=== PATIENT | male | born 1985 | race Caucasian/White ===

== ENCOUNTER 2020-12-22 13:49 | Inpatient (IN) | payer OTHER ==
[2020-12-22] VITALS (12 sets, daily range): BP systolic 119–132; BP diastolic 59–82
[~2020-12-22] VITALS: Ht 175.3 cm; Wt 68.5 kg
--- NOTE | 2020-12-22 16:09 | REP ---
INDICATION: metastatic testicular CA. COMPARISON: The prior study dated 08/16/2011 could not be found in the imaging archive for reasons unknown to this examiner. The transcribed report of that study describes numerous bilateral lung nodules. No adenopathy was identified. TECHNIQUE: Chest CT without IV contrast. FINDINGS: No lung nodules are identified today. There are no infiltrates or pleural effusions. There are a few subpleural bulla in the left paramediastinal area. There is no mediastinal lymph node enlargement. There is no axillary lymphadenopathy. In the absence of IV contrast the study is insensitive for hilar lymph node enlargement. The unenhanced thoracic aorta is unremarkable. Cardiac size is normal. There is no pericardial effusion. IMPRESSION: There are no lung nodules. There is no adenopathy. There are no infiltrates or pleural effusions. There are no lytic, blastic or destructive skeletal changes. Essentially negative CT study of the chest. <Electronically signed by Estevan Thomas > 12/22/20 [id number]
--- NOTE | 2020-12-22 16:19 | REP ---
INDICATION: metastatic testicular CA. COMPARISON: No images are available in the computer archive for the prior study dated 08/16/2011, for reasons unknown to this examiner. TECHNIQUE: Abdomen/pelvis CT without IV or bowel contrast. FINDINGS: The unenhanced hepatic parenchyma is homogeneous. The gallbladder, unenhanced pancreas and unenhanced spleen are normal size and otherwise unremarkable. The adrenals are unremarkable. On the prior study a large right renal/retroperitoneal mass is described. On the study today the right kidney is markedly atrophic measuring 4.2 cm craniocaudad by 4.6 cm transversely by 1.7 cm AP. There are few small dystrophic calcifications within this right renal remanent. The left kidney is unremarkable. The abdominal aorta is unremarkable. There is no periaortic/retroperitoneal adenopathy or mass. The bowel and mesentery are unremarkable. Pelvis: There is no pelvic adenopathy or ascites. The bladder is incompletely distended but otherwise unremarkable. The prostate is normal size. Seminal vesicles are unremarkable. The appendix is unremarkable. The pelvic bowel loops are unremarkable. There are no lytic, blastic or destructive skeletal changes. IMPRESSION: The previously described large right renal/retroperitoneal mass is no longer present. There is no retroperitoneal or mesenteric adenopathy. The right kidney is markedly atrophic. The left kidney is unremarkable. Otherwise, essentially negative abdomen/pelvis CT. <Electronically signed by Estevan Thomas > 12/22/20 [id number]
[2020-12-22 16:38] LABS: RSV AMPLIFICATION NEGATIVE (NEGATIVE)
[2020-12-22] MEDS ORDERED: ACETAMINOPHEN TAB 650MG DOSE (2X325MG) PO PRN (17:15)
[2020-12-22] MEDS ORDERED: NS 1,000 ML IV SCH (17:15)
[2020-12-22] MEDS: SUCRALFATE 1 GM TAB PO SCH ×2 (18:00→23:21)
--- NOTE | 2020-12-22 18:02 | HPEPDOC ---
General Date of Admission 12/22/20 Date of Service: Dec 22, 2020 Chief Complaint The patient is a 35-year-old male admitted with a reason for visit of Gen Med Complaint. Source: Patient Exam Limitations: No limitations Severity: Moderate History of Present Illness Patient is 35 years old male with past medical history of right testicular carcinoma presented to the hospital with generalized weakness. Patient stated that for past one week he has been having increased shortness of breath on exertion and generalized weakness. Also she stated that for past few months has been having intermittent diarrhea with red blood in his stool at least 3 times in the week for past 6 months. He states that he has been having intermittent nausea and vomiting. He thought that it might be frequent food poisoning. He denied any fever, dysuria or chills. Of note patient has history of metastatic right testicular carcinoma, diagnosed in 2010, he had 2 cycles of chemotherapy, after that he developed remission. He stopped following oncologist in 2014. Patient does not have primary care and didn't see primary care physician for years. In ER patient was found to have Hb 3.7, no leukocytosis, BUN 23, creatinine 2.7, iron 12, total iron binding capacity 473. CT chest There are no lung nodules. There is no adenopathy. There are no infiltrates or pleural effusions. There are no lytic, blastic or destructive skeletal changes. CT abdomen and pelvis showed The previously described large right renal/retroperi toneal mass is no longer present. There is no retroperitoneal or mesenteric adenopathy. The right kidney is markedly atrophic. The left kidney is unremarkable Home Medications No Active Prescriptions or Reported Meds Allergies Coded Allergies: No Known Allergies (Unverified , 12/22/20) Past Medical History Medical History Right testicular carcinoma Surgical History Bone stem transplant Family History Mother - breast cancer, father diabetes Social History * Smoker: current smoker Alcohol: heavy Drugs: marijuana A-FIB/CHADSVASC A-FIB History Current/History of A-Fib/PAF?: No Current PO Anticoag Therapy: No Review of Systems Constitutional: Reports: Weakness, Fatigue; Denies: Chills, Fever Eyes: Denies: Pain ENT: Denies: Head Aches Skin: Denies: Rash, Lesions Pulmonary: Reports: Dyspnea Cardiovascular: Denies: Chest Pain Gastrointestinal: Reports: Nausea, Vomiting Genitourinary: Denies: Dysuria, Frequency Hematologic: Denies: Bruising Endocrine: Denies: Polydipsia Musculoskeletal: Denies: Neck Pain Neurological: Denies: Weakness Psych: Reports: Mood Normal Physical Examination General Exam: Positive: Alert, Cooperative Eye Exam: Positive: PERRLA ENT Exam: Positive: Atraumatic Neck Exam: Positive: Supple; Negative: JVD Chest Exam: Positive: Clear to auscultation Heart Exam: Positive: Rate Normal Telemetry: Positive: No significant arrhythmia Abdomen Exam: Positive: Normal bowel sounds Extremity Exam: Negative: Clubbing Skin Exam: Positive: Other skin issue (pale) Neuro Exam: Positive: Normal Gait, Strength at 5/5 X4 ext Psych Exam: Positive: Mental status NL Vital Signs Vital Signs Date Time Temp Pulse Resp B/P (MAP) Pulse Ox O2 Delivery O2 Flow Rate FiO2 12/22/20 17:18 98.9 81 18 119/59 100 Room Air Laboratory Data Labs 24H Laboratory Tests 2 12/22/20 15:41: Coronavirus (COVID-19)(PCR) NEGATIVE, Influenza Type A (RT-PCR) NEGATIVE, Influenza Type B (RT-PCR) NEGATIVE, Respiratory Syncytial Virus (PCR) NEGATIVE Assessment/Plan Patient is 35 years old male with past medical history of right testicular carcinoma presented to the hospital with generalized weakness. Patient stated that for past one week he has been having increased shortness of breath on exertion and generalized weakness. Also she stated that for past few months has been having intermittent diarrhea with red blood in his stool. He states that he has been having intermittent nausea and vomiting. He thought that it might be frequent food poisoning. He denied any fever, dysuria or chills. Of note patient has history of metastatic right testicular carcinoma, diagnosed in 2010, he had 2 cycles of chemotherapy, after that he developed remission. He stopped following oncologist in 2014. Patient does not have primary care and didn't see primary care physician for years. In ER patient was found to have Hb 3.7, no leukocytosis, BUN 23, creatinine 2.7, iron 12, total iron binding capacity 473. CT chest There are no lung nodules. There is no adenopathy. There are no infil trates or pleural effusions. There are no lytic, blastic or destructive skeletal changes. CT abdomen and pelvis showed The previously described large right renal/retroperitoneal mass is no longer present. There is no retroperitoneal or mesenteric adenopathy. The right kidney is markedly atrophic. The left kidney is unremarkable Problems (1) Symptomatic anemia Status: Acute Problem Text: Most likely secondary to acute GI bleed Patient reported red blood blood in the stool for past 6 months. Also patient has significant alcohol abuse history Stool for occult blood Clear liquid diet for now Appreciate/agree with gastric GI consult (2) Hx of testicular malignancy Status: Acute Problem Text: Follow-up with oncologist in the outpatient settings (3) Acute renal failure Status: Acute Problem Text: Multifactorial. Patient has an atrophic right kidney, severe anemia and dehydration IV fluid, blood transfusion Appreciate/agree with nephrology consult (4) Iron deficiency Status: Acute Problem Text: Blood transfusion for now. 3 units of blood was ordered by ER Iron supplementation Plan / VTE VTE Prophylaxis Ordered?: No VTE Exclusion Pharmacological: Bleeding Risk JUVENTINO MALDONADO DO Dec 22, 2020 18:02
[2020-12-22] MEDS: PANTOPRAZOLE 40MG VIAL (C9113 PER 1) IV SCH (22:39)
[2020-12-22 23:14] LABS: HEMATOCRIT 20.1 % (42.0-52.0); HEMOGLOBIN 5.8 g/dl (13.5-17.5)
[2020-12-22] MEDS: IRON POLYSAC (NIFEREX) 150 MG CAP PO SCH (23:21)
[2020-12-23] VITALS (15 sets, daily range): BP systolic 120–132; BP diastolic 63–94
[2020-12-23 03:16] LABS: MEAN CORPUSCULAR HEMOGLOBIN 25.1 pg (27.0-33.0); MEAN CORPUSCULAR VOLUME 83.7 fl (80.0-96.0); PLATELET COUNT, AUTOMATED 205 10^3/uL (150-450); RED BLOOD COUNT 2.51 10^6/uL (4.30-6.10); WHITE BLOOD COUNT 8.3 10^3/uL (4.0-10.0)
[2020-12-23 03:26] LABS: INR 1.14; PROTHROMBIN TIME 14.9 SECONDS (12.5-14.3)
[2020-12-23 03:28] LABS: HEMOGLOBIN 6.3 g/dl (13.5-17.5)
[2020-12-23 03:51] LABS: ALBUMIN 3.1 GM/DL (3.2-5.2); BILIRUBIN,TOTAL 0.8 MG/DL (0.2-1.0); CALCIUM LEVEL 7.8 MG/DL (8.5-10.1); CREATININE FOR GFR 2.34 MG/DL (0.70-1.30); GLOMERULAR FILTRATION RATE 33.7 (>60); TOTAL PROTEIN 5.7 GM/DL (6.4-8.2)
[2020-12-23] MEDS: SUCRALFATE 1 GM TAB PO SCH ×3 (06:11→17:15)
[2020-12-23] MEDS ORDERED: SODIUM BICARBONATE 75 MEQ in NS 0.45% 1,000 ML IV SCH (09:00)
[2020-12-23] MEDS: PANTOPRAZOLE 40MG VIAL (C9113 PER 1) IV SCH ×2 (09:23→21:25)
[2020-12-23] MEDS: IRON POLYSAC (NIFEREX) 150 MG CAP PO SCH ×2 (09:23→21:25)
[2020-12-23 09:29] LABS: PERCENT SATURATION 93.6 % (19.7-50.0)
[2020-12-23 09:56] LABS: HEMOGLOBIN 7.6 g/dl (13.5-17.5)
[2020-12-23] MEDS ORDERED: NULYTELY SOLN 4000ML BTL PO ONE (13:00)
[2020-12-23 13:42] LABS: HEMOGLOBIN 8.6 g/dl (13.5-17.5)
--- NOTE | 2020-12-23 14:12 | IPNPDOC ---
Text Note Date of Service The patient was seen on 12/23/20. NOTE Subjective: Patient states that he feels better today. Denies fever, chills. He denied any abdominal pain, nausea or vomiting Objective: GENERAL APPEARANCE: Pale male HEENT: no scleral icterus, no JVD, EOMI CARDIOVASCULAR: S1S2 LUNGS: CTA ABDOMEN: soft & not tender w palpitation MUSCULOSKELETAL: no cyanosis, no swelling INTEGUMENT: no generalized pallor NEUROLOGICAL: cranial nerve function from 2-12 intact intact, follows commands, speech not dysarthric Assessment/Plan Patient is 35 years old male with past medical history of right testicular carcinoma presented to the hospital with generalized weakness. Patient stated that for past one week he has been having increased shortness of breath on exertion and generalized weakness. Also she stated that for past few months has been having intermittent diarrhea with red blood in his stool. He states that he has been having intermittent nausea and vomiting. He thought that it might be frequent food poisoning. He denied any fever, dysuria or chills. Of note patient has history of metastatic right testicular carcinoma, diagnosed in 2010, he had 2 cycles of chemotherapy, after that he developed remission. He stopped following oncologist in 2014. Patient does not have primary care and didn't see primary care physician for years. In ER patient was found to have Hb 3.7, no leukocytosis, BUN 23, creatinine 2.7, iron 12, total iron binding capacity 473. CT chest There are no lung nodules. There is no adenopathy. There are no infiltrates or pleural effusions. There are no lytic, blastic or destructive sk eletal changes. CT abdomen and pelvis showed The previously described large right renal/retroperitoneal mass is no longer present. There is no retroperitoneal or mesenteric adenopathy. The right kidney is markedly atrophic. The left kidney is unremarkable Problems (1) Symptomatic anemia Most likely secondary to acute GI bleed Patient reported red blood blood in the stool for past 6 months. Also patient has significant alcohol abuse history. Patient received 3 units of blood since yesterday. Hemoglobin 8.6 Await Stool for occult blood Clear liquid diet for now GI team revealed proceed with colonoscopy and EGD tomorrow (2) Hx of testicular malignancy Follow-up with oncologist in the outpatient settings (3) Acute renal failure Multifactorial. Patient has an atrophic right kidney, severe anemia and dehydration IV fluid, blood transfusion Appreciate/agree with nephrology consult (4) Iron deficiency Blood transfusion for now. 3 units of blood was ordered by ER Iron supplementation VS,Americo, I+O VS, Americo, I+O Laboratory Tests 12/22/20 23:00 12/23/20 03:01 12/23/20 09:24 12/23/20 13:31 Vital Signs Date Time Temp Pulse Resp B/P (MAP) Pulse Ox O2 Delivery O2 Flow Rate FiO2 12/23/20 13:15 98.6 54 18 126/80 100 Room Air l I&O- Last 24 Hours up to 6 AM 12/23/20 05:59 Intake Total 1148 ml Output Total 150 ml Balance 998 ml JUVENTINO MALDONADO DO Dec 23, 2020 14:11
[2020-12-23 18:25] LABS: HEMATOCRIT 29.5 % (42.0-52.0)
--- NOTE | 2020-12-23 19:31 | CR.PDOC ---
General Date of Consultation: Dec 23, 2020 Referring Provider: JUVENTINO MALDONADO DO Attending Physician: LUIS CHILDRESS MD Consultation REASON FOR CONSULTATION/CHIEF COMPLAINT: Acute renal failure CHIEF COMPLAINT: fatigue HISTORY OF PRESENT ILLNESS: Roman Stoddard is a 35 YO M with history of testicular cancer in 2010 s/p chemotherapy and bone marrow transplant who presents with several days weakness and fatigue. He states that he received his first dose of the COVID19 vaccination around 6 days ago and since that time has felt more tired, fatigued, and short of breath. He went to [facility] and underwent labs where he was found to have a hgb 3.6 and sent immediately to the ER. He states he has had black stools off and on for about 6 months and abdominal pain, nausea and o ccasional non-bloody vomiting during that time. He has not seen any medical professional since 2014 when he completed his cancer treatment at [facility]. He reports that he drinks 3-4 beers a night and smokes both cigarettes and marijuana very heavily. He denies any recent fevers, chills, rigors but does report a 10lb weight loss in the past year. PAST MEDICAL HISTORY: 1. History of testicular carcinoma diagnosed in 2010, s/p 2 cycles chemotherapy 2. Atrophic R kidney, 2/2 to metastasis of testicular cancer PAST SURGICAL HISTORY: 1. Bone marrow transplant SOCIAL HISTORY: Current daily smoker, Reports heavy EtOH use, smokes marijuana FAMILY HISTORY: Reviewed and noncontributory ALLERGIES: Please see below. REVIEW OF SYSTEMS: 10 point ROS negative other than stated in HPI HOME MEDICATIONS: Please see below. PHYSICAL EXAMINATION: VITAL SIGNS: see below GENERAL: alert and oriented, in no apparent distress, pleasant and conversant in full sentences, pale appearing HEENT: PERRL, EOMI, Oral mucous membranes are moist without lesions. NECK: JVD is elevated. No adenopathy is appreciated. No thyromegaly CHEST/LUNGS: Lungs are clear bilaterally without rhonchi, rales, or wheezes. There is no subcutaneous air appreciated. There is no tenderness to the chest wall. HEART: Regular rate and rhythm. No murmurs, rubs, or gallops are appreciated. Distal pulses are 2+. No carotid bruits appreciated. ABDOMEN: Soft, nondistended. Tender to deep palpation in all four quadrants. Bowel sounds are positive. No organomegaly is appreciated. No masses are appreciated. There are no peritoneal signs. There is no Kingman sign. EXTREMITIES: No peripheral edema. There is no focal long bone tenderness or deformity. SKIN: The patients skin is warm and dry, without rashes or lesions. PSYCHIATRIC: AAO x 3, normal mood/affect NEUROLOGIC: The patient has 5/5 strength to the upper and lower extremities bilaterally. Sensation is intact throughout. Deep tendon reflexes are 2+ in all four extremities. There are no deficits to the cranial nerves. LABORATORY DATA: See below. IMAGING: CT CHEST: IMPRESSION: There are no lung nodules. There is no adenopathy. There are no infiltrates or pleural effusions. There are no lytic, blastic or destructive skeletal changes. Essentially negative CT study of the chest. CT ABD/PEL: IMPRESSION: The previously described large right renal/retroperitoneal mass is no longer present. There is no retroperitoneal or mesenteric adenopathy. The right kidney is markedly atrophic. The left kidney is unremarkable. Otherwise, essentially negative abdomen/pelvis CT. MICROBIOLOGY: Please see below. ASSESSMENT: This is a 35 YO M with history of testicular cancer who has not seen a health professional since 2014 who presented to the ED with fatigue, SOB, black stools and weight loss found to have anemia with hgb 5.8 and acute renal failure. PLAN: 1. Acute renal failure: Cr found to be 2.34, unknown baseline -The patient has atrophic R kidney reportedly from metastasis of testicular cancer. He is not aware of any history of kidney dysfunction or disease -Likely prerenal. Pending Urine studies -Hold further fluid resuscitation for now given the amount of blood received and clinically the patient is somewhat fluid overloaded -Renal function likely to improve with pRBCs and fluid 2. Anemia, likely 2/2 GI bleed: fecal occult positive -Recommend protonix at this time -Hgb seems to have improved after 5U pRBCs, now up to 9.0 -Recommend re-check iron studies after transfusions completed 3. History of testicular cancer, now atrophic R kidney -Patient will likely need follow up with heme/onc DISPO:Pending improvement of renal function Vital Signs/I&O Vital Signs Date Time Temp Pulse Resp B/P (MAP) Pulse Ox O2 Delivery O2 Flow Rate FiO2 12/23/20 07:44 98.0 62 18 124/64 (84) 100 Room Air I&O- Last 24 Hours up to 6 AM 12/23/20 06:00 Intake Total 1148 ml Output Total 150 ml Balance 998 ml Laboratory Data Labs 24H Laboratory Tests 2 12/22/20 15:41: Coronavirus (COVID-19)(PCR) NEGATIVE, Influenza Type A (RT-PCR) NEGATIVE, Influenza Type B (RT-PCR) NEGATIVE, Respiratory Syncytial Virus (PCR) NEGATIVE 12/22/20 23:00: Reticulocyte # (auto) 21.9, Percent Reticulocyte Count 0.9, Reticulocyte Hemoglobin Equivalent 18.1L 12/23/20 03:01: Nucleated Red Blood Cells % (auto) 0.8H, Prothrombin Time 14.9H, Prothromb Time International Ratio 1.14, Anion Gap 7L, Glomerular Filtration Rate 33.7L, Calcium Level 7.8L, Magnesium Level 2.0, Total Bilirubin 0.8#, Aspartate Amino Transf (AST/SGOT) 14, Alanine Aminotransferase (ALT/SGPT) 17, Alkaline Phosphatase 99, Total Protein 5.7L, Albumin 3.1L, Albumin/Globulin Ratio 1.2 CBC/BMP Laboratory Tests 12/22/20 23:00 12/23/20 03:01 Allergies Coded Allergies: No Known Allergies (Unverified , 12/22/20) Home Medications No Active Prescriptions or Reported Meds GME ATTESTATION GME ATTESTATION My faculty preceptor for this patient encounter was physically present during the encounter and was fully available. All aspects of the patient interview, examination, medical decision making process, and medical care plan development were reviewed and approved by the faculty preceptor. The faculty preceptor is aware and concurs with the plan as stated in the body of this note and will attest to such by his/her cosignature. Attending Note Attending Note h/o testicular Ca s/p chemo and bone marrow transplant. Rt renal atrophy. No known baseline renal function. No physician visit last 6 yr. Admitted with Renal failure and severe symptomatic anemia RUTH on possible CKD Rt renal atrophy. Severe Anemia and possible GI bleed. Metabolic acidosis PRBC transfusion. Bicarb fluid given but signs of fluid overload. Hold IV fluid for now. Monitor renal function. No urgent need of HD. OMEGA FAITH MD Dec 23, 2020 08:41 LUIS CHILDRESS MD Dec 23, 2020 23:07
[2020-12-23 21:14] LABS: APPEARANCE, URINE CLEAR (CLEAR); BACTERIA, URINE AUTO NEGATIVE (NEGATIVE); BILIRUBIN, URINE AUTO NEGATIVE (NEGATIVE); BLOOD, URINE BLOOD 1+ (NEGATIVE); COLOR, URINE STRAW (YELLOW); GLUCOSE, URINE (UA) AUTO 2+ mg/dL (NEGATIVE); KETONE, URINE AUTO NEGATIVE (NEGATIVE); LEUKOCYTE ESTERASE, URINE AUTO NEGATIVE (NEGATIVE); NITRITE, URINE AUTO NEGATIVE (NEGATIVE); PROTEIN, URINE AUTO 1+ mg/dL (NEGATIVE); RBC, URINE AUTO 0 /HPF (0-3); SPECIFIC GRAVITY URINE AUTO 1.008 (1.002-1.035); SQUAMOUS EPITHELIAL CELL UR AU 0 /HPF (0-6); UROBILINOGEN, URINE AUTO 0.2 mg/dL (0.0-2.0); WBC, URINE AUTO 0 /HPF (0-3)
[2020-12-23 21:35] LABS: CREATININE,RANDOM URINE 48.2 MG/DL; SODIUM,RANDOM URINE 60 MEQ/L
[2020-12-24] VITALS (7 sets, daily range): BP systolic 118–132; BP diastolic 71–78
[2020-12-24] MEDS: SUCRALFATE 1 GM TAB PO SCH ×4 (00:05→17:42)
[2020-12-24 00:48] LABS: HEMATOCRIT 29.9 % (42.0-52.0); HEMOGLOBIN 9.3 g/dl (13.5-17.5)
[2020-12-24 06:34] LABS: BASO # 0.1 10^3/uL (0.0-0.2); BASO % 0.6 % (0.0-1.0); EOS # 0.1 10^3/uL (0.0-0.5); EOS % 1.7 % (0.0-3.0); HEMATOCRIT 26.2 % (42.0-52.0); HEMOGLOBIN 8.1 g/dl (13.5-17.5); LYMPH # 1.6 10^3/uL (1.5-5.0); LYMPH % 18.8 % (24.0-44.0); MEAN CORPUSCULAR HEMOGLOBIN 25.6 pg (27.0-33.0); MEAN CORPUSCULAR HGB CONC 30.9 g/dl (32.0-36.5); MEAN CORPUSCULAR VOLUME 82.9 fl (80.0-96.0); MONO # 0.5 10^3/uL (0.0-0.8); MONO % 6.3 % (2.0-8.0); NEUTROPHILS # 6.1 10^3/uL (1.5-8.5); PLATELET COUNT, AUTOMATED 196 10^3/uL (150-450); RED BLOOD COUNT 3.16 10^6/uL (4.30-6.10); WHITE BLOOD COUNT 8.5 10^3/uL (4.0-10.0)
[2020-12-24 06:46] LABS: INR 1.13; PROTHROMBIN TIME 14.8 SECONDS (12.5-14.3)
[2020-12-24 06:56] LABS: ALBUMIN 2.9 GM/DL (3.2-5.2); BILIRUBIN,TOTAL 0.7 MG/DL (0.2-1.0); CALCIUM LEVEL 7.8 MG/DL (8.5-10.1); CREATININE FOR GFR 2.28 MG/DL (0.70-1.30); GLOMERULAR FILTRATION RATE 34.8 (>60); TOTAL PROTEIN 5.6 GM/DL (6.4-8.2)
[2020-12-24] MEDS: IRON POLYSAC (NIFEREX) 150 MG CAP PO SCH ×2 (11:57→20:09)
[2020-12-24] MEDS: PANTOPRAZOLE 40MG VIAL (C9113 PER 1) IV SCH ×2 (11:57→20:09)
--- NOTE | 2020-12-24 11:57 | IPNPDOC ---
Subjective General Date/Time Seen The patient was seen on 12/24/20 at 11:47. Subject Chief Complaint/History The patient is a 35-year-old male admitted with a reason for visit of Acute Renal Failure/Hx Of Testicular Malignancy/Sy. PRATIK Owens was seen and examined at the bedside this morning. He has just completed his Golytely as there is plan for EGD/colonscopy today. He has no complaints today. His renal function is about the same today, and this was explained to him. All questions were answered. Otherwise, he denies any nausea/vomiting or abdominal pain at this time. OBJECTIVE PHYSICAL EXAMINATION: VITAL SIGNS: see below GENERAL: alert and oriented, in no apparent distress, pleasant and conversant in full sentences, pale appearing/thin HEENT: PERRL, EOMI, Oral mucous membranes are moist without lesions. NECK: JVD is only mildly elevated, improved from yesterday. No adenopathy is appreciated. No thyromegaly CHEST/LUNGS: Lungs are clear bilaterally without rhonchi, rales, or wheezes. There is no subcutaneous air appreciated. There is no tenderness to the chest wall. HEART: Regular rate and rhythm. No murmurs, rubs, or gallops are appreciated. Distal pulses are 2+. No carotid bruits appreciated. ABDOMEN: Soft, nondistended. Tender to deep palpation in all four quadrants. Bowel sounds are positive. No organomegaly is appreciated. No masses are appreciated. There are no peritoneal signs. There is no [place] Sp[place] sign. EXTREMITIES: No peripheral edema. There is no focal long bone tenderness or deformity. SKIN: The patients skin is warm and dry, without rashes or lesions. PSYCHIATRIC: AAO x 3, normal mood/affect NEUROLOGIC: There are no obvious focal deficits LABORATORY DATA: See below. IMAGING: CT CHEST: IMPRESSION: There are no lung nodules. There is no adenopathy. There are no infiltrates or pleural effusions. There are no lytic, blastic or destructive skeletal changes. Essentially negative CT study of the chest. CT ABD/PEL: IMPRESSION: The previously described large right renal/retroperitoneal mass is no longer present. There is no retroperitoneal or mesenteric adenopathy. The right kidney is markedly atrophic. The left kidney is unremarkable. Otherwise, essentially negative abdomen/pelvis CT. MICROBIOLOGY: Please see below. ASSESSMENT: This is a 35 YO M with history of testicular cancer who has not seen a health professional since 2014 who presented to the ED with fatigue, SOB, black stools and weight loss found to have anemia with hgb 5.8 and acute renal failure. PLAN: 1. Acute renal failure: Cr slightly improved to 2.28 today -The patient has atrophic R kidney reportedly from metastasis of testicular cancer. He is not aware of any history of kidney dysfunction or disease -Urine studies indicate FeNA of 2%, or intrinsic etiology -Will start patient on oral bicarbonate tomorrow as he is NPO for his procedure today 2. Anemia, likely 2/2 GI bleed: fecal occult positive -Continue Protonix -Hgb seems to have improved after 5U pRBCs, now around 8.1 -Recommend re-check iron studies after transfusions completed 3. History of testicular cancer, now atrophic R kidney -Patient will likely need follow up with heme/onc DISPO:Pending improvement of renal function, needs to follow up with Nephrology in outpatient setting after discharge Current Medications Current Medications Current Medications Medications (Trade) Dose Ordered Sig/Miko Route PRN Reason Start Time Stop Time Status Last Admin Dose Admin Acetaminophen (Tylenol Tab) 650 mg Q4H PRN PO PAIN OR FEVER 12/22/20 17:15 Home Med (Med Rec Complete!) ASDIRECTED XX 12/22/20 15:15 12/22/20 15:17 DC Iron (Niferex) 150 mg BID PO 12/22/20 21:00 12/23/20 21:25 Pantoprazole Sodium (Protonix) 40 mg BID IV 12/22/20 21:00 12/23/20 21:25 Sodium Bicarbonate 75 meq/Sodium Chloride 1,075 ml @ 100 mls/hr [id number] IV 12/23/20 09:00 12/23/20 12:29 DC 12/23/20 09:23 Sodium Chloride 1,000 ml @ 75 mls/hr [id number] IV 12/22/20 17:15 12/23/20 07:11 DC Sucralfate (Carafate) 1 gm Q6H PO 12/22/20 18:00 12/24/20 06:17 Allergies Coded Allergies: No Known Allergies (Unverified , 12/22/20) VS,Fishbone, I+O VS, Fishbone, I+O Laboratory Tests 12/23/20 13:31 12/23/20 18:02 12/24/20 00:07 12/24/20 06:05 Vital Signs Date Time Temp Pulse Resp B/P (MAP) Pulse Ox O2 Delivery O2 Flow Rate FiO2 12/24/20 06:00 98.5 53 17 118/74 (89) 100 Room Air I&O- Last 24 Hours up to 6 AM 12/24/20 06:00 Intake Total 2645 ml Output Total 1500 ml Balance 1145 ml GME ATTESTATION GME ATTESTATION My faculty preceptor for this patient encounter was physically present during the encounter and was fully available. All aspects of the patient interview, examination, medical decision making process, and medical care plan development were reviewed and approved by the faculty preceptor. The faculty preceptor is aware and concurs with the plan as stated in the body of this note and will attest to such by his/her cosignature. Attending Note Attending Note RUTH with Atrophic Rt kidney. Baseline Unknown anemia sec to possible GI bleed Metabolic Acidosis h/o testicular Ca s/p chemo at [facility]. Renal function is slightly better. No need of IV fluid. Endoscopy today. Start oral bicarb after endoscopy. I anticipate he will improve to CKD3. OMEGA FAITH MD Dec 24, 2020 11:57 LUIS CHILDRESS MD Dec 24, 2020 21:46
[2020-12-24 12:09] LABS: HEMATOCRIT 27.2 % (42.0-52.0); HEMOGLOBIN 8.2 g/dl (13.5-17.5)
[2020-12-24] MEDS: SODIUM BICARBONATE 325 MG TAB PO SCH ×2 (13:29→20:09)
[2020-12-24] MEDS ORDERED: propofoL 200 MG/20 ML VIAL As Ordered ONE ×3 (15:43→16:06)
--- NOTE | 2020-12-24 16:28 | ROOR ---
Patient Name: Roman Stoddard Procedure Date: 12/24/2020 2:12 PM Date of : 1985 Age: 35 Room: OR 1 Gender: Male Note Status: Finalized Procedure: Upper GI endoscopy Indications: Iron deficiency anemia secondary to chronic blood loss Providers: Ramiro Sy MD Referring MD: 2. Inpatient 2. Inpatient Requesting Provider: Medicines: Monitored Anesthesia Care Complications: No immediate complications. Procedure: Pre-Anesthesia Assessment: - Prior to the procedure, a History and Physical was performed, and patient medications and allergies were reviewed. The patient is competent. The risks and benefits of the procedure and the sedation options and risks were discussed with the patient. All questions were answered and informed consent was obtained. Patient identification and proposed procedure were verified by the physician, the nurse and the anesthesiologist in the procedure room. Mental Status Examination: alert and oriented. Airway Examination: normal oropharyngeal airway and neck mobility. Respiratory Examination: clear to auscultation. CV Examination: normal. Prophylactic Antibiotics: The patient does not require prophylactic antibiotics. Prior Anticoagulants: The patient has taken no previous anticoagulant or antiplatelet agents. ASA Grade Assessment: II - A patient with mild systemic disease. After reviewing the risks and benefits, the patient was deemed in satisfactory condition to undergo the procedure. The anesthesia plan was to use monitored anesthesia care (MAC). Immediately prior to administration of medications, the patient was re-assessed for adequacy to receive sedatives. The heart rate, respiratory rate, oxygen saturations, blood pressure, adequacy of pulmonary ventilation, and response to care were monitored throughout the procedure. The physical status of the patient was re-assessed after the procedure. The Endoscope was introduced through the mouth, and advanced to the second part of duodenum. The upper GI endoscopy was accomplished without difficulty. The patient tolerated the procedure well. Findings: LA Grade C (one or more mucosal breaks continuous between tops of 2 or more mucosal folds, less than 75% circumference) esophagitis with no bleeding was found in the distal esophagus. Biopsies were taken with a cold forceps for histology. Verification of patient identification for the specimen was done by the physician and nurse using the patient's name, date and medical record number. Estimated blood loss was minimal. A small hiatal hernia was present. Scattered mild inflammation characterized by erythema and granularity was found in the gastric antrum. Scattered mild inflammation characterized by congestion (edema), erythema and granularity was found in the duodenal bulb and in the second portion of the duodenum. Biopsies for histology were taken with a cold forceps for evaluation of celiac disease. Impression: - LA Grade C reflux esophagitis. Rule out Hidalgo's esophagus. Biopsied. - Small hiatal hernia. - Gastritis. - Duodenitis. Biopsied. Recommendation: - Patient has a contact number available for emergencies. The signs and symptoms of potential delayed complications were discussed with the patient. Return to normal activities tomorrow. Written discharge instructions were provided to the patient. - High fiber diet. - Continue present medications. - Await pathology results. - Use Protonix (pantoprazole) 40 mg PO twice daily - to be taken in morning (1/2 hour before breakfast) and at bedtime ( atleast 3 hours after last meal) for 3 months. - Follow an antireflux regimen. - Return to GI clinic in [facility] (address [address], [address], [place], [facility]) in 4 -- 6 weeks. Please call GI clinic @ [phone] for apppointment date and time. - Return to primary care physician. Procedure Code(s): --- Professional --- 53941, Esophagogastroduodenoscopy, flexible, transoral; with biopsy, single or multiple Diagnosis Code(s): --- Professional --- K21.0, Gastro-esophageal reflux disease with esophagitis K44.9, Diaphragmatic hernia without obstruction or gangrene K29.70, Gastritis, unspecified, without bleeding K29.80, Duodenitis without bleeding D50.0, Iron deficiency anemia secondary to blood loss (chronic) CPT copyright 2019 [employer]. All rights reserved. The codes documented in this report are preliminary and upon erisa attorney review may be revised to meet current compliance requirements. Ramiro Sy MD Ramiro Sy MD 12/24/2020 4:28:37 PM Electronically signed by Ramiro Sy MD Number of Addenda: 0 Note Initiated On: 12/24/2020 2:12 PM Estimated Blood Loss: Estimated blood loss was minimal.
--- NOTE | 2020-12-24 16:39 | ROOR ---
Patient Name: Roman Stoddard Procedure Date: 12/24/2020 2:03 PM Date of : 1985 Age: 35 Room: OR 1 Gender: Male Note Status: Finalized Procedure: Colonoscopy Indications: Screening for colorectal malignant neoplasm Providers: Ramiro Sy MD Referring MD: 2. Inpatient 2. Inpatient Requesting Provider: Medicines: Monitored Anesthesia Care Complications: No immediate complications. Procedure: Pre-Anesthesia Assessment: - Prior to the procedure, a History and Physical was performed, and patient medications and allergies were reviewed. The patient is competent. The risks and benefits of the procedure and the sedation options and risks were discussed with the patient. All questions were answered and informed consent was obtained. Patient identification and proposed procedure were verified by the physician, the nurse and the anesthesiologist in the procedure room. Mental Status Examination: alert and oriented. Airway Examination: normal oropharyngeal airway and neck mobility. Respiratory Examination: clear to auscultation. CV Examination: normal. Prophylactic Antibiotics: The patient does not require prophylactic antibiotics. Prior Anticoagulants: The patient has taken no previous anticoagulant or antiplatelet agents. ASA Grade Assessment: II - A patient with mild systemic disease. After reviewing the risks and benefits, the patient was deemed in satisfactory condition to undergo the procedure. The anesthesia plan was to use monitored anesthesia care (MAC). Immediately prior to administration of medications, the patient was re-assessed for adequacy to receive sedatives. The heart rate, respiratory rate, oxygen saturations, blood pressure, adequacy of pulmonary ventilation, and response to care were monitored throughout the procedure. The physical status of the patient was re-assessed after the procedure. The Colonoscope was introduced through the anus and advanced to the terminal ileum, with identification of the appendiceal orifice and IC valve. The colonoscopy was performed without difficulty. The patient tolerated the procedure well. The quality of the bowel preparation was good. The terminal ileum, ileocecal valve, appendiceal orifice, and rectum were photographed. Scope insertion time was 3 minutes. Scope withdrawal time was 9 minutes. The total duration of the procedure was 14 minutes. Findings: The perianal and digital rectal examinations were normal. The terminal ileum appeared normal. A 25 mm polyp was found in the descending colon. The polyp was pedunculated. The polyp was removed with a hot snare. Resection and retrieval were complete. To close a defect after polypectomy, two hemostatic clips were successfully placed. There was no bleeding at the end of the procedure. Verification of patient identification for the specimen was done by the physician and nurse using the patient's name, date and medical record number. Estimated blood loss was minimal. A 15 mm polyp was found in the rectum. The polyp was sessile. The polyp was removed with a hot snare. Resection and retrieval were complete. Non-bleeding external and internal hemorrhoids were found during retroflexion and during endoscopy. The hemorrhoids were large and Grade IV (internal hemorrhoids that prolapse and cannot be reduced manually). Impression: - The examined portion of the ileum was normal. - One 25 mm polyp in the descending colon, removed with a hot snare. Resected and retrieved. Clips were placed. - One 15 mm polyp in the rectum, removed with a hot snare. Resected and retrieved. - Non-bleeding external and internal hemorrhoids. Recommendation: - Patient has a contact number available for emergencies. The signs and symptoms of potential delayed complications were discussed with the patient. Return to normal activities tomorrow. Written discharge instructions were provided to the patient. - High fiber diet. - Continue present medications. - Await pathology results. - Preparation H suppository: Insert rectally daily for 6 days. - Repeat colonoscopy in 1 year for surveillance based on pathology results. - Telephone GI clinic for pathology results in 2 weeks. - Return to primary care physician. Procedure Code(s): --- Professional --- 18585, Colonoscopy, flexible; with removal of tumor(s), polyp(s), or other lesion(s) by snare technique Diagnosis Code(s): --- Professional --- Z12.11, Encounter for screening for malignant neoplasm of colon K64.3, Fourth degree hemorrhoids K63.5, Polyp of colon K62.1, Rectal polyp CPT copyright 2019 [employer]. All rights reserved. The codes documented in this report are preliminary and upon textile worker review may be revised to meet current compliance requirements. Ramiro Sy MD Ramiro Sy MD 12/24/2020 4:38:57 PM Electronically signed by Ramiro Sy MD Number of Addenda: 0 Note Initiated On: 12/24/2020 2:03 PM Estimated Blood Loss: Estimated blood loss was minimal.
[2020-12-24 18:28] LABS: HEMATOCRIT 28.4 % (42.0-52.0); HEMOGLOBIN 8.6 g/dl (13.5-17.5)
--- NOTE | 2020-12-24 19:54 | IPNPDOC ---
Text Note Date of Service The patient was seen on 12/24/20. NOTE Subjective: Patient states that he feels better today. Denies fever, chills. He denied any abdominal pain, nausea or vomiting Objective: GENERAL APPEARANCE: Pale male HEENT: no scleral icterus, no JVD, EOMI CARDIOVASCULAR: S1S2 LUNGS: CTA ABDOMEN: soft & not tender w palpitation MUSCULOSKELETAL: no cyanosis, no swelling INTEGUMENT: no generalized pallor NEUROLOGICAL: cranial nerve function from 2-12 intact intact, follows commands, speech not dysarthric Assessment/Plan Patient is 35 years old male with past medical history of right testicular carcinoma presented to the hospital with generalized weakness. Patient stated that for past one week he has been having increased shortness of breath on exertion and generalized weakness. Also she stated that for past few months has been having intermittent diarrhea with red blood in his stool. He states that he has been having intermittent nausea and vomiting. He thought that it might be frequent food poisoning. He denied any fever, dysuria or chills. Of note patient has history of metastatic right testicular carcinoma, diagnosed in 2010, he had 2 cycles of chemotherapy, after that he developed remission. He stopped following oncologist in 2014. Patient does not have primary care and didn't see primary care physician for years. In ER patient was found to have Hb 3.7, no leukocytosis, BUN 23, creatinine 2.7, iron 12, total iron binding capacity 473. CT chest There are no lung nodules. There is no adenopathy. There are no infiltrates or pleural effusions. There are no lytic, blastic or destructive sk eletal changes. CT abdomen and pelvis showed The previously described large right renal/retroperitoneal mass is no longer present. There is no retroperitoneal or mesenteric adenopathy. The right kidney is markedly atrophic. The left kidney is unremarkable Problems (1) Symptomatic anemia Most likely secondary to acute GI bleed Patient reported red blood blood in the stool for past 6 months. Also patient has significant alcohol abuse history. Patient received 3 units of blood since yesterday. Hemoglobin 8.1 GI team team will proceed with colonoscopy and EGD today (2) Hx of testicular malignancy Follow-up with oncologist in the outpatient settings (3) Acute renal failure Multifactorial. Patient has an atrophic right kidney, severe anemia and dehydration IV fluid, blood transfusion Appreciate/agree with nephrology consult (4) Iron deficiency Hemoglobin stable 8.1. Continue to monitor Iron supplementation VS,Fishalinae, I+O VS, Fishbone, I+O Laboratory Tests 12/24/20 00:07 12/24/20 06:05 12/24/20 11:48 12/24/20 17:59 Vital Signs Date Time Temp Pulse Resp B/P (MAP) Pulse Ox O2 Delivery O2 Flow Rate FiO2 12/24/20 19:00 97.4 50 18 132/78 (96) 100 Room Air I&O- Last 24 Hours up to 6 AM 12/24/20 05:59 Intake Total 2345 ml Output Total 1500 ml Balance 845 ml JUVENTINO MALDONADO DO Dec 24, 2020 19:54
[2020-12-25 00:24] LABS: HEMATOCRIT 28.6 % (42.0-52.0); HEMOGLOBIN 8.7 g/dl (13.5-17.5)
[2020-12-25] MEDS: SUCRALFATE 1 GM TAB PO SCH ×4 (00:25→17:50)
[2020-12-25 06:00] VITALS: BP 128/80
[2020-12-25 06:14] LABS: BASO # 0.1 10^3/uL (0.0-0.2); BASO % 0.5 % (0.0-1.0); EOS # 0.2 10^3/uL (0.0-0.5); EOS % 1.7 % (0.0-3.0); HEMATOCRIT 26.9 % (42.0-52.0); HEMOGLOBIN 8.2 g/dl (13.5-17.5); LYMPH # 1.9 10^3/uL (1.5-5.0); LYMPH % 17.7 % (24.0-44.0); MEAN CORPUSCULAR HEMOGLOBIN 25.9 pg (27.0-33.0); MEAN CORPUSCULAR HGB CONC 30.5 g/dl (32.0-36.5); MEAN CORPUSCULAR VOLUME 85.1 fl (80.0-96.0); MONO # 0.7 10^3/uL (0.0-0.8); NEUTROPHILS % 73.7 % (36.0-66.0); PLATELET COUNT, AUTOMATED 218 10^3/uL (150-450); RED BLOOD COUNT 3.16 10^6/uL (4.30-6.10); WHITE BLOOD COUNT 10.9 10^3/uL (4.0-10.0)
[2020-12-25 06:22] LABS: INR 1.15
[2020-12-25 06:39] LABS: ALBUMIN 2.8 GM/DL (3.2-5.2); BILIRUBIN,TOTAL 0.5 MG/DL (0.2-1.0); CALCIUM LEVEL 7.8 MG/DL (8.5-10.1); CREATININE FOR GFR 2.34 MG/DL (0.70-1.30); GLOMERULAR FILTRATION RATE 33.7 (>60); MAGNESIUM LEVEL 1.9 MG/DL (1.8-2.4); POTASSIUM SERUM 4.2 MEQ/L (3.5-5.1); TOTAL PROTEIN 5.5 GM/DL (6.4-8.2)
[2020-12-25 08:45] VITALS: BP 122/72
[2020-12-25] MEDS: PANTOPRAZOLE 40MG VIAL (C9113 PER 1) IV SCH (08:52)
[2020-12-25] MEDS: IRON POLYSAC (NIFEREX) 150 MG CAP PO SCH (09:02)
[2020-12-25] MEDS: SODIUM BICARBONATE 325 MG TAB PO SCH (09:03)
[2020-12-25] MEDS: BICITRA 30ML SOLN UDC PO SCH ×2 (11:12→20:59)
--- NOTE | 2020-12-25 11:16 | IPNPDOC ---
Subjective General Date/Time Seen The patient was seen on 12/25/20 at 11:11. Subject Chief Complaint/History The patient is a 35-year-old male admitted with a reason for visit of Acute Renal Failure/Hx Of Testicular Malignancy/Sy. PRATIK Owens was seen and examined at the bedside this morning. He went for his E GD/colonoscopy yesterday and the findings of gastritis and polyps in his colon were discussed with him this morning. He feels well this morning and has no complaints, wishes to go home. We have started him on Bicitra and the potential side effects of diarrhea were discussed with him. In addition he will be started on IV iron. His renal function seems to have stabilized at this time. OBJECTIVE PHYSICAL EXAMINATION: VITAL SIGNS: see below GENERAL: alert and oriented, in no apparent distress, pleasant and conversant in full sentences, pale appearing/thin HEENT: PERRL, EOMI, Oral mucous membranes are moist without lesions. NECK: JVD is only mildly elevated, improved from yesterday. No adenopathy is appreciated. No thyromegaly CHEST/LUNGS: Lungs are clear bilaterally without rhonchi, rales, or wheezes. There is no subcutaneous air appreciated. There is no tenderness to the chest wall. HEART: Regular rate and rhythm. No murmurs, rubs, or gallops are appreciated. Distal pulses are 2+. No carotid bruits appreciated. ABDOMEN: Soft, nondistended. Tender to deep palpation in all four quadrants. Bowel sounds are positive. No organomegaly is appreciated. No masses are appreciated. There are no peritoneal signs. There is no E[place] sign. EXTREMITIES: No peripheral edema. There is no focal long bone tenderness or deformity. SKIN: The patients skin is warm and dry, without rashes or lesions. PSYCHIATRIC: AAO x 3, normal mood/affect NEUROLOGIC: There are no obvious focal deficits LABORATORY DATA: See below. IMAGING: No new imaging MICROBIOLOGY: Please see below. ASSESSMENT: This is a 35 YO M with history of testicular cancer who has not seen a health professional since 2014 who presented to the ED with fatigue, SOB, black stools and weight loss found to have anemia with hgb 5.8 and acute renal failure. PLAN: 1. Acute renal failure: Cr now stable at 2.34, this is possibly his baseline -The patient has atrophic R kidney reportedly from metastasis of testicular cancer. He is not aware of any history of kidney dysfunction or disease -Urine studies indicate FeNA of 2%, or intrinsic etiology -Started Bicitra today for acidosis, potential side effects of diarrhea were d iscussed with the patient 2. Anemia, likely 2/2 GI bleed: fecal occult positive -Continue Protonix -Hgb seems to have improved after 5U pRBCs, now around 8.1 -Recommend re-check iron studies after transfusions completed -EGD yesterday demonstrates gastritis -Started on IV Venofer 3 bags 100 mg each, then he can get oral iron after discharge 3. History of testicular cancer, now atrophic R kidney -Patient will likely need follow up with heme/onc DISPO: Pending improvement in anemia, renal function. Likely discharge in 24 hours Current Medications Current Medications Current Medications Medications (Trade) Dose Ordered Sig/Miko Route PRN Reason Start Time Stop Time Status Last Admin Dose Admin Acetaminophen (Tylenol Tab) 650 mg Q4H PRN PO PAIN OR FEVER 12/22/20 17:15 Citric Acid/ Sodium Citrate (Bicitra) 30 ml BID PO 12/25/20 10:00 Home Med (Med Rec Complete!) ASDIRECTED XX 12/22/20 15:15 12/22/20 15:17 DC Iron (Niferex) 150 mg BID PO 12/22/20 21:00 12/25/20 09:02 Pantoprazole Sodium (Protonix) 40 mg BID IV 12/22/20 21:00 12/25/20 08:52 Sodium Bicarbonate 75 meq/Sodium Chloride 1,075 ml @ 100 mls/hr [id number] IV 12/23/20 09:00 12/23/20 12:29 DC 12/23/20 09:23 Sodium Bicarbonate (Sodium Bicarbonate) 650 mg BID PO 12/24/20 09:00 12/25/20 09:17 DC 12/25/20 09:03 Sodium Chloride 1,000 ml @ 75 mls/hr [id number] IV 12/22/20 17:15 12/23/20 07:11 DC Sucralfate (Carafate) 1 gm Q6H PO 12/22/20 18:00 12/25/20 05:28 Allergies Coded Allergies: No Known Allergies (Unverified , 12/22/20) VS,Fishbone, I+O VS, Fishbone, I+O Laboratory Tests 12/24/20 11:48 12/24/20 17:59 12/25/20 00:02 12/25/20 05:29 Vital Signs Date Time Temp Pulse Resp B/P (MAP) Pulse Ox O2 Delivery O2 Flow Rate FiO2 12/25/20 06:00 99.4 58 18 128/80 (96) 100 Room Air I&O- Last 24 Hours up to 6 AM 12/25/20 06:00 Intake Total 1700 ml Output Total 250 ml Balance 1450 ml GME ATTESTATION GME ATTESTATION My faculty preceptor for this patient encounter was physically present during the encounter and was fully available. All aspects of the patient interview, examination, medical decision making process, and medical care plan development were reviewed and approved by the faculty preceptor. The faculty preceptor is aware and concurs with the plan as stated in the body of this note and will attest to such by his/her cosignature. Attending Note Attending Note RUTH on CKD Metabolic Acidosis Gastritis Iron Def anemia Atrophic Rt kidney IV iron for 2 days. Start Bicitra. DC oral bicarb. Possible DC in next 24 hr. OMEGA FAITH MD Dec 25, 2020 11:16 LUIS CHILDRESS MD Dec 25, 2020 14:05
[2020-12-25 11:59] LABS: HEMATOCRIT 26.3 % (42.0-52.0)
--- NOTE | 2020-12-25 12:56 | IPNPDOC ---
Text Note Date of Service The patient was seen on 12/25/20. NOTE Subjective: No any acute events overnight. No fever, no chills Objective: GENERAL APPEARANCE: Pale male HEENT: no scleral icterus, no JVD, EOMI CARDIOVASCULAR: S1S2 LUNGS: CTA ABDOMEN: soft & not tender w palpitation MUSCULOSKELETAL: no cyanosis, no swelling INTEGUMENT: no generalized pallor NEUROLOGICAL: cranial nerve function from 2-12 intact intact, follows commands, speech not dysarthric Assessment/Plan Patient is 35 years old male with past medical history of right testicular carcinoma presented to the hospital with generalized weakness. Patient stated that for past one week he has been having increased shortness of breath on exertion and generalized weakness. Also she stated that for past few months has been having intermittent diarrhea with red blood in his stool. He states that he has been having intermittent nausea and vomiting. He thought that it might be frequent food poisoning. He denied any fever, dysuria or chills. Of note patient has history of metastatic right testicular carcinoma, diagnosed in 2010, he had 2 cycles of chemotherapy, after that he developed remission. He stopped following oncologist in 2014. Patient does not have primary care and didn't see primary care physician for years. In ER patient was found to have Hb 3.7, no leukocytosis, BUN 23, creatinine 2.7, iron 12, total iron binding capacity 473. CT chest There are no lung nodules. There is no adenopathy. There are no infiltrates or pleural effusions. There are no lytic, blastic or destructive skeletal changes. CT abdomen and pelvis showed The previously described large right renal/retroperitoneal mass is no longer present. There is no retroperitoneal or mesenteric adenopathy. The right kidney is markedly atrophic. The left kidney is unremarkable Problems (1) Symptomatic anemia Most likely secondary to acute GI bleed Patient reported red blood blood in the stool for past 6 months. Also patient has significant alcohol abuse history. Patient received 3 units of blood since yesterday. Hemoglobin 8.1 colonoscopy showed: One 25 mm polyp in the descending colon, removed with a hot snare. Resected and retrieved. Clips were placed. One 15 mm polyp in the rectum, removed with a hot snare. Resected and retrieved.Non-bleeding external and internal hemorrhoids EGD showed LA Grade C reflux esophagitis. Rule out Hidalgo's esophagus. Biopsied. - Small hiatal hernia. - Gastritis. - Duodenitis. Patient will need repeat colonoscopy in one year Omeprazole 40 mg twice a day (2) Hx of testicular malignancy Follow-up with oncologist in the outpatient settings (3) Acute renal failure Multifactorial. Patient has an atrophic right kidney, severe anemia and dehydration IV fluid, patient received blood transfusion Nephrology follows him (4) Iron deficiency anemia Superimposed with kidney failure Hemoglobin stable 8.0. Continue to monitor Iron supplementation, IV Venofer 3 bags 100 mg each Metabolic acidosis Secondary to uremia Started Bicitra today Acute GI bleed Most likely secondary to colon polyps See above VS,Fishbone, I+O VS, Fishbone, I+O Laboratory Tests 12/24/20 17:59 12/25/20 00:02 12/25/20 05:29 12/25/20 11:50 Vital Signs Date Time Temp Pulse Resp B/P (MAP) Pulse Ox O2 Delivery O2 Flow Rate FiO2 12/25/20 08:45 98.3 61 13 122/72 (89) 100 Room Air I&O- Last 24 Hours up to 6 AM 12/25/20 06:00 Intake Total 1700 ml Output Total 250 ml Balance 1450 ml JUVENTINO MALDONADO DO Dec 25, 2020 12:56
[2020-12-25 14:00] VITALS: BP 117/61
[2020-12-25] MEDS ORDERED: IRON SUCROSE 200 MG in NS 100 ML OVER 1 HR IV SCH (14:00)
[2020-12-25 18:13] LABS: HEMATOCRIT 28.4 % (42.0-52.0); HEMOGLOBIN 8.6 g/dl (13.5-17.5)
[2020-12-25] MEDS: OMEPRAZOLE 20 MG CAP PO SCH (20:59)
[2020-12-25 22:00] VITALS: BP 127/79
[2020-12-26] MEDS: SUCRALFATE 1 GM TAB PO SCH ×3 (01:28→11:21)
[2020-12-26 05:48] LABS: BASO # 0.1 10^3/uL (0.0-0.2); BASO % 0.6 % (0.0-1.0); EOS # 0.2 10^3/uL (0.0-0.5); EOS % 2.2 % (0.0-3.0); HEMATOCRIT 27.2 % (42.0-52.0); HEMOGLOBIN 8.1 g/dl (13.5-17.5); LYMPH # 1.9 10^3/uL (1.5-5.0); LYMPH % 19.7 % (24.0-44.0); MEAN CORPUSCULAR HEMOGLOBIN 25.9 pg (27.0-33.0); MEAN CORPUSCULAR HGB CONC 29.8 g/dl (32.0-36.5); MEAN CORPUSCULAR VOLUME 86.9 fl (80.0-96.0); MONO # 0.6 10^3/uL (0.0-0.8); MONO % 6.5 % (2.0-8.0); NEUTROPHILS # 6.8 10^3/uL (1.5-8.5); NEUTROPHILS % 70.5 % (36.0-66.0); PLATELET COUNT, AUTOMATED 225 10^3/uL (150-450); RED BLOOD COUNT 3.13 10^6/uL (4.30-6.10); WHITE BLOOD COUNT 9.6 10^3/uL (4.0-10.0)
[2020-12-26 06:00] VITALS: BP 125/78
[2020-12-26 06:09] LABS: INR 1.06; PROTHROMBIN TIME 14.1 SECONDS (12.5-14.3)
[2020-12-26 06:20] LABS: ALBUMIN 2.8 GM/DL (3.2-5.2); BILIRUBIN,TOTAL 0.3 MG/DL (0.2-1.0); CALCIUM LEVEL 8.4 MG/DL (8.5-10.1); CREATININE FOR GFR 2.35 MG/DL (0.70-1.30); GLOMERULAR FILTRATION RATE 33.6 (>60); MAGNESIUM LEVEL 2.1 MG/DL (1.8-2.4); POTASSIUM SERUM 4.2 MEQ/L (3.5-5.1); TOTAL PROTEIN 5.7 GM/DL (6.4-8.2)
[2020-12-26] MEDS ORDERED: IRON SUCROSE 100MG 5ML VIAL (J1756 PER 1MG) IV SCH ×2 (09:00)
[2020-12-26] MEDS: OMEPRAZOLE 20 MG CAP PO SCH (09:28)
[2020-12-26] MEDS: BICITRA 30ML SOLN UDC PO SCH (09:28)
[2020-12-26] MEDS ORDERED: OMEP-218 PO (10:45)
[2020-12-26] MEDS ORDERED: IRON325T2 PO (10:45)
[2020-12-26] MEDS ORDERED: SUCR1TA PO (10:45)
[2020-12-26] MEDS ORDERED: IRON SUCROSE 200 MG in NS 100 ML OVER 1 HR IV SCH (11:00)
--- NOTE | 2020-12-26 16:08 | DS.PDOC ---
Discharge Summary General Date of Admission Dec 22, 2020 at 17:13 Date of Discharge 12/26/20 Discharge Summary PROCEDURES PERFORMED DURING STAY: [None]. ADMITTING DIAGNOSES: Symptomatic anemia Hx of testicular malignancy Acute renal failure Iron deficiency anemia Metabolic acidosis Acute GI bleed DISCHARGE DIAGNOSES: Symptomatic anemia Hx of testicular malignancy Acute renal failure Iron deficiency anemia Metabolic acidosis Acute GI bleed COMPLICATIONS/CHIEF COMPLAINT: Acute Renal Failure/Hx Of Testicular Malignancy/Sy. HISTORY OF PRESENT ILLNESS: Patient is 35 years old male with past medical history of right testicular carcinoma presented to the hospital with generalized weakness. Patient stated that for past one week he has been having increased shortness of breath on exertion and generalized weakness. Also she stated that for past few months has been having intermittent diarrhea with red blood in his stool. He states that he has been having intermittent nausea and vomiting. He thought that it might be frequent food poisoning. He denied any fever, dysuria or chills. Of note patient has history of metastatic right testicular carcinoma, diagnosed in 2010, he had 2 cycles of chemotherapy, after that he developed remission. He stopped following oncologist in 2014. Patient does not have primary care and didn't see primary care physician for years. In ER patient was found to have Hb 3.7, no leukocytosis, BUN 23, creatinine 2.7, iron 12, total iron binding capacity 473. CT chest There are no lung nodules. There is no adeno emerson. There are no infiltrates or pleural effusions. There are no lytic, blastic or destructive skeletal changes. CT abdomen and pelvis showed The previously described large right renal/retroperitoneal mass is no longer present. There is no retroperitoneal or mesenteric adenopathy. The right kidney is markedly atrophic. The left kidney is unremarkable HOSPITAL COURSE: During the hospital stay the following issues addressed (1) Symptomatic anemia Most likely secondary to acute GI bleed Patient reported red blood blood in the stool for past 6 months. Also patient has significant alcohol abuse history. Patient received 3 units of blood since yesterday. Hemoglobin 8.1 colonoscopy showed: One 25 mm polyp in the descending colon, removed with a hot snare. Resected and retrieved. Clips were placed. One 15 mm polyp in the rectum, removed with a hot snare. Resected and retrieved.Non-bleeding external and internal hemorrhoids EGD showed LA Grade C reflux esophagitis. Rule out Hidalgo's esophagus. Biopsied. - Small hiatal hernia. - Gastritis. - Duodenitis. Patient will need repeat colonoscopy in one year Omeprazole 40 mg twice a day (2) Hx of testicular malignancy Follow-up with oncologist in the outpatient settings (3) Acute renal failure Multifactorial. Patient has an atrophic right kidney, severe anemia and dehydration Patient received treatment with IV fluid, patient received blood transfusion Nephrology follows him (4) Iron deficiency anemia Superimposed with kidney failure Hemoglobin stable. Continue to monitor Iron supplementation, Patient received IV Venofer Metabolic acidosis Secondary to uremia Started Bicitra today Acute GI bleed Most likely secondary to colon polyps See above DISCHARGE MEDICATIONS: Please see below. ALLERGIES: Please see below. PHYSICAL EXAMINATION ON DISCHARGE: VITAL SIGNS: Please see below. GENERAL APPEARANCE: Pale male HEENT: no scleral icterus, no JVD, EOMI CARDIOVASCULAR: S1S2 LUNGS: CTA ABDOMEN: soft & not tender w palpitation MUSCULOSKELETAL: no cyanosis, no swelling INTEGUMENT: no generalized pallor NEUROLOGICAL: cranial nerve function from 2-12 intact intact, follows commands, speech not dysarthric LABORATORY DATA: Please see below. IMAGING: See above PROGNOSIS: Fair ACTIVITY: [As tolerated]. DIET: Regular DISPOSITION: 01 Home, Self-Care. DISCHARGE INSTRUCTIONS: Follow-up with art specialist in 2 weeks, follow-up with pocketed spring assembler/oncologist in 1 week, follow-up with Dr. Sy (GI) in 4-6 weeks please call [phone] for appointment date and time. ITEMS TO FOLLOWUP ON ON OUTPATIENT: Follow-up with PCP, art specialist, GI team DISCHARGE CONDITION: [Stable]. TIME SPENT ON DISCHARGE: 40 minutes. Vital Signs/I&Os Vital Signs Date Time Temp Pulse Resp B/P (MAP) Pulse Ox O2 Delivery O2 Flow Rate FiO2 12/26/20 06:00 98.5 64 18 125/78 (94) 99 Room Air I&O- Last 24 Hours up to 6 AM 12/26/20 06:00 Intake Total 1520 ml Output Total 900 ml Balance 620 ml Laboratory Data Labs 24H Laboratory Tests 2 12/26/20 05:30: Immature Granulocyte % (Auto) 0.5, Neutrophils (%) (Auto) 70.5H, Lymphocytes (%) (Auto) 19.7L, Monocytes (%) (Auto) 6.5, Eosinophils (%) (Auto) 2.2, Basophils (%) (Auto) 0.6, Neutrophils # (Auto) 6.8, Lymphocytes # (Auto) 1.9, Monocytes # (Auto) 0.6, Eosinophils # (Auto) 0.2, Basophils # (Auto) 0.1, Nucleated Red Blood Cells % (auto) 0.2H, Prothrombin Time 14.1H, Prothromb Time International Ratio 1.06, Anion Gap 6L, Glomerular Filtration Rate 33.6L, Calcium Level 8.4L, Magnesium Level 2.1, Total Bilirubin 0.3, Aspartate Amino Transf (AST/SGOT) 10, Alanine Aminotransferase (ALT/SGPT) 14, Alkaline Phosphatase 104, Total Protein 5.7L, Albumin 2.8L, Albumin/Globulin Ratio 1.0 CBC/BMP Laboratory Tests 12/25/20 18:01 12/26/20 05:30 Microbiology Microbiology 12/23/20 Stool Occult Blood (JADIEL) - Final, Complete Discharge Medications Scheduled Ferrous Sulfate (Iron) 325 Mg Tablet, 1 TAB PO BID Omeprazole (Omeprazole) 20 Mg Capsule.dr, 40 MG PO BID Sucralfate (Sucralfate) 1 Gm Tablet, 1 GM PO Q6H Allergies Coded Allergies: No Known Allergies (Unverified , 12/22/20) JUVENTINO MALDONADO DO Dec 26, 2020 16:08
--- NOTE | 2020-12-26 18:46 | IPN ---
NEPHROLOGY PROGRESS NOTE DATE: 12/26/2020 SUBJECTIVE: Patient was seen and examined at the bedside today morning. He is afebrile, hemodynamically stable. He has a good urine output. Renal function is stable. Creatinine is 2.3. Bicarbonate is improving. He is tolerating the oral Bicitra and his hemoglobin level is also stable. He is getting intravenous (IV) Venofer. OBJECTIVE: VITAL SIGNS: Temperature 98.5 degrees Fahrenheit, blood pressure 125/78, pulse 64, respiratory rate 18, saturating 99% on room air. INTAKE AND OUTPUT: Urine output recorded as 900 mL yesterday, 1200 mL so far today since overnight. Weight in the bed scale is not available. PHYSICAL EXAMINATION: GENERAL: Patient is awake, alert, oriented times three, laying in bed, no apparent distress. HEAD AND NECK EXAM: Extraocular muscles intact. Pupils equally round and reactive to light. Mucous membranes are moist. Neck is supple. There is no jugular venous distention (JVD). CARDIOVASCULAR: S1, S2. Regular rate. No edema of the bilateral lower extremities. RESPIRATORY: Chest is clear to auscultation bilaterally. Bilateral equal air entry. No rales or rhonchi. ABDOMEN: Soft. Positive bowel sounds. Nontender. No organomegaly. MUSCULOSKELETAL: No clubbing or cyanosis. Pulses are 2+. CENTRAL NERVOUS SYSTEM (RECONCILIATION ANALYST): No focal deficits. Power is 5/5 in all extremities. LABORATORY REVIEW: CBC showed a WBC 9.6, hemoglobin 8.1, platelets 225. BMP showed sodium 140, potassium 4.2, chloride 115, bicarbonate 19, BUN 17, creatinine 2.3; it was 2.3 yesterday as well. CURRENT INPATIENT MEDICATIONS: Patient's medications were all reviewed by myself. He is getting IV Venofer. One dose was given yesterday. Second dose will be given today. He has been started on Bicitra 30 mL by mouth twice a day, which he is tolerating well. He continues to be on Carafate and omeprazole. ASSESSMENT AND PLAN: 1. Acute kidney injury. Patient most likely has a baseline chronic kidney disease (CKD) III, because ever since he was admitted, his creatinine has been staying stable at 2.3. He has atrophic right kidney. We do not have a baseline available. He needs to follow up in the nephrology clinic. His electrolytes are stable and acidosis is getting better. 2. Metabolic acidosis. Patient was started on oral Bicitra. Bicarbonate level is improving. Continue current dose on discharge. 3. Iron deficiency anemia. Patient was given two doses of IV Venofer. He will be started on oral iron once his gastritis gets better. 4. Acute gastritis. Patient is currently on omeprazole and Carafate. Continue current dose on discharge. DISPOSITION: Patient is okay to be discharged from a nephrology standpoint. He needs to follow up with nephrology within two weeks from discharge from the hospital.
== END 2020-12-26 14:15 | disposition home or self-care (01) | DRG 253 ==
LOC: M ED 13:49 → M ED INP 17:13 → ENRESERV 18:42 → M PCU 21:26 → M MSPAV 12-23 11:45
PROVIDERS: ADMIT Internal Medicine; ATTEND Internal Medicine
PROC: 30233N1 Transfusion of Nonautologous Red Blood Cells into Peripheral Vein, Percutaneous Approach (ICD-10-PCS; 2020-12-22)
PROC: 0DBM8ZX Excision of Descending Colon, Via Natural or Artificial Opening Endoscopic, Diagnostic (ICD-10-PCS; 2020-12-24)
PROC: 0DBP8ZX Excision of Rectum, Via Natural or Artificial Opening Endoscopic, Diagnostic (ICD-10-PCS; 2020-12-24)
PROC: 0W3P8ZZ Control Bleeding in Gastrointestinal Tract, Via Natural or Artificial Opening Endoscopic (ICD-10-PCS; 2020-12-24)
PROC: 0DB98ZX Excision of Duodenum, Via Natural or Artificial Opening Endoscopic, Diagnostic (ICD-10-PCS; principal; 2020-12-24 16:30)
DX: K92.2 Gastrointestinal hemorrhage, unspecified (principal); D50.0 Iron deficiency anemia secondary to blood loss (chronic); N17.9 Acute kidney failure, unspecified; E86.0 Dehydration; N26.1 Atrophy of kidney (terminal); Z20.822 Contact with and (suspected) exposure to COVID-19; N18.30 Chronic kidney disease, stage 3 unspecified; F17.210 Nicotine dependence, cigarettes, uncomplicated; F12.10 Cannabis abuse, uncomplicated; K44.9 Diaphragmatic hernia without obstruction or gangrene; F10.10 Alcohol abuse, uncomplicated; K29.80 Duodenitis without bleeding; D12.4 Benign neoplasm of descending colon; K21.00 Gastro-esophageal reflux disease with esophagitis, without bleeding; K29.00 Acute gastritis without bleeding; K64.3 Fourth degree hemorrhoids; D12.8 Benign neoplasm of rectum; K64.4 Residual hemorrhoidal skin tags; Z85.47 Personal history of malignant neoplasm of testis

== ENCOUNTER → 2020-12-22 | Outpatient (CLI) | payer OTHER ==
--- NOTE | 2020-12-22 11:14 | REP ---
INDICATION: CHRONIC FATIGUE AND ABDOMINAL PAIN. COMPARISON: Patient had a chest CT dated 08/16/2011, however, the images from that CT are not available. The CT report describes numerous scattered small nodules up to 13 mm. Patient has clinical history of right testicular neoplasm. TECHNIQUE: Upright PA and lateral chest. FINDINGS: No lung nodules are identified on the PA and lateral plain films today. There are no infiltrates or pleural effusions. Cardiac size is normal. The amauri, mediastinum, and skeletal structures are unremarkable except for old healed rib fractures of the right 5th and 6th ribs. IMPRESSION: Essentially negative PA and lateral chest The lung nodules described on the comparison CT are not identified on these PA and lateral views of the chest. Consider follow-up chest CT for further evaluation. <Electronically signed by Estevan Thomas > 12/22/20 [id number]
--- NOTE | 2020-12-22 11:16 | REP ---
INDICATION: CHRONIC FATIGUE AND ABDOMINAL PAIN COMPARISON: None. TECHNIQUE: Upright view of the chest with supine and upright views of the abdomen and pelvis. FINDINGS: Frontal upright view of the chest demonstrates no acute cardiopulmonary process or free air below the diaphragm to suspect pneumoperitoneum. Supine and upright views of the abdomen and pelvis demonstrate nonspecific bowel gas pattern without obstruction or perforation. No organomegaly. No abnormal calcifications. Skeletal structures normal for age. IMPRESSION: Nonspecific bowel gas pattern. <Electronically signed by Hang Isaac > 12/22/20 [id number]
[2020-12-22 11:40] LABS: BASO % 0.3 % (0.0-1.0); EOS # 0.3 10^3/uL (0.0-0.5); EOS % 3.2 % (0.0-3.0); LYMPH # 2.9 10^3/uL (1.5-5.0); LYMPH % 30.4 % (24.0-44.0); MEAN CORPUSCULAR HEMOGLOBIN 19.8 pg (27.0-33.0); MEAN CORPUSCULAR HGB CONC 26.1 g/dl (32.0-36.5); MEAN CORPUSCULAR VOLUME 75.9 fl (80.0-96.0); MONO # 0.6 10^3/uL (0.0-0.8); MONO % 6.2 % (2.0-8.0); NEUTROPHILS # 5.7 10^3/uL (1.5-8.5); NEUTROPHILS % 59.2 % (36.0-66.0); PLATELET COUNT, AUTOMATED 330 10^3/uL (150-450); RED BLOOD COUNT 1.87 10^6/uL (4.30-6.10); WHITE BLOOD COUNT 9.6 10^3/uL (4.0-10.0)
[2020-12-22 11:42] LABS: HEMATOCRIT 14.2 % (42.0-52.0); HEMOGLOBIN 3.7 g/dl (13.5-17.5)
[2020-12-22 12:01] LABS: ALBUMIN 3.4 GM/DL (3.2-5.2); BILIRUBIN,TOTAL 0.2 MG/DL (0.2-1.0); C REACTIVE PROTEIN QUANTITATIV 0.3 MG/DL (0.00-0.30); CALCIUM LEVEL 7.8 MG/DL (8.5-10.1); CREATININE FOR GFR 2.79 MG/DL (0.70-1.30); FREE T4 0.6 NG/DL (0.76-1.46); GLOMERULAR FILTRATION RATE 27.5 (>60); PERCENT SATURATION 2.5 % (19.7-50.0); POTASSIUM SERUM 4.5 MEQ/L (3.5-5.1); THYROID STIMULATING HORMONE 4.64 uIU/ML (0.358-3.740); TOTAL PROTEIN 6.8 GM/DL (6.4-8.2)
== END ==
LOC: M WUC 10:17
PROVIDERS: ATTEND Physician Assistant
DX: R53.82 Chronic fatigue, unspecified (principal); R10.84 Generalized abdominal pain

== ENCOUNTER 2023-10-02 12:29 | Observation (INO) | payer OTHER ==
[~2023-10-02] VITALS: Ht 175.3 cm; Wt 70.7 kg
[~2023-10-02 12:29] MED LIST: IRON325T2 PO; OMEP-173 PO; SUCR1TA PO
[2023-10-02 13:34] LABS: BASO # 0.1 10^3/uL (0.0-0.2); BASO % 0.6 % (0.0-1.0); EOS # 0.1 10^3/uL (0.0-0.5); EOS % 1.4 % (0.0-3.0); HEMATOCRIT 43.8 % (42.0-52.0); HEMOGLOBIN 14.5 g/dl (13.5-17.5); LYMPH # 1.7 10^3/uL (1.5-5.0); LYMPH % 19.7 % (24.0-44.0); MEAN CORPUSCULAR HGB CONC 33.1 g/dl (32.0-36.5); MEAN CORPUSCULAR VOLUME 99.5 fl (80.0-96.0); MONO # 0.6 10^3/uL (0.0-0.8); MONO % 7.4 % (2.0-8.0); NEUTROPHILS # 6.1 10^3/uL (1.5-8.5); NEUTROPHILS % 70.7 % (36.0-66.0); PLATELET COUNT, AUTOMATED 231 10^3/uL (150-450); WHITE BLOOD COUNT 8.7 10^3/uL (4.0-10.0)
[2023-10-02 14:11] LABS: LIPASE 58 U/L (12-53)
[2023-10-02 14:13] LABS: ALBUMIN 3.8 G/DL (3.2-5.2); ALKALINE PHOSPHATASE 551 U/L (46-116); ALT/SGPT 37 U/L (7.0-40); AST/SGOT 17 U/L (<34); BILIRUBIN,DIRECT < 0.1 MG/DL (<0.4); BILIRUBIN,TOTAL 0.2 MG/DL (0.3-1.2); BLOOD UREA NITROGEN 24 MG/DL (9-23); CALCIUM LEVEL 8.4 MG/DL (8.5-10.1); CARBON DIOXIDE LEVEL 21 MMOL/L (20-31); CHLORIDE LEVEL 112 MMOL/L (98-107); CREATININE FOR GFR 2.07 MG/DL (0.70-1.30); GLOMERULAR FILTRATION RATE 38.2 (>60); GLUCOSE, FASTING 110 MG/DL (60-100); POTASSIUM SERUM 4.7 MMOL/L (3.5-5.1); SODIUM LEVEL 140 MMOL/L (136-145); TOTAL PROTEIN 6.6 G/DL (5.7-8.2)
[2023-10-02] MEDS ORDERED: MORPHINE 2 MG/ML 1ML VIAL IV ONE (14:55)
[2023-10-02] MEDS ORDERED: NS 500 ML IV ONE (14:55)
[2023-10-02] MEDS ORDERED: ONDANSETRON 4MG 2ML VIAL IV ONE (14:55)
[2023-10-02] MEDS ORDERED: MED REC IN PROGRESS XX SCH (15:50)
[2023-10-02 15:58] LABS: RSV AMPLIFICATION NEGATIVE (NEGATIVE)
[2023-10-02] MEDS ORDERED: FERR325T3 PO (15:59)
[2023-10-02] MEDS ORDERED: MULTTAB86 PO (16:04)
[2023-10-02] MEDS ORDERED: ACET-897 PO (16:05)
[2023-10-02] MEDS ORDERED: ALEV220T22 PO (16:06)
[2023-10-02] MEDS ORDERED: HOME MED LIST COMPLETE! XX SCH (16:15)
[2023-10-02] MEDS ORDERED: LR 1,000 ML IV ONE (16:15)
[2023-10-02] MEDS ORDERED: ACETAMINOPHEN TAB 650MG DOSE (2X325MG) PO PRN (16:30)
[2023-10-02] MEDS ORDERED: ONDANSETRON 4MG 2ML VIAL IV PRN (16:30)
[2023-10-02] MEDS ORDERED: PANTOPRAZOLE 40MG VIAL IV ONE (16:30)
[2023-10-02] MEDS: PANTOPRAZOLE 40MG VIAL IV SCH ×2 (16:43→20:54)
[2023-10-02] MEDS: SUCRALFATE SUSP 1GM/10ML UD PO SCH (17:44)
[2023-10-02] MEDS: PIPERACILLIN/TAZOBACTAM SOD 4.5 GM in D5W MINI-BAG PLUS 50 ML IV SCH (17:44)
[2023-10-02] MEDS: PERCOCET 5MG/325MG TAB PO PRN (21:02)
[2023-10-03 00:33] LABS: HEMATOCRIT 38.4 % (42.0-52.0); HEMOGLOBIN 12.6 g/dl (13.5-17.5)
[2023-10-03] MEDS: SUCRALFATE SUSP 1GM/10ML UD PO SCH ×3 (01:02→12:51)
[2023-10-03] MEDS: PIPERACILLIN/TAZOBACTAM SOD 4.5 GM in D5W MINI-BAG PLUS 50 ML IV SCH ×3 (01:02→12:52)
[2023-10-03] MEDS: PERCOCET 5MG/325MG TAB PO PRN ×4 (05:40→21:59)
[2023-10-03] MEDS ORDERED: SENOKOT S TAB PO ONE (07:40)
[2023-10-03] MEDS ORDERED: D5W/0.45% SODIUM CHLORIDE 1,000 ML IV SCH (07:45)
[2023-10-03 07:59] LABS: BASO # 0.1 10^3/uL (0.0-0.2); EOS # 0.2 10^3/uL (0.0-0.5); EOS % 3.6 % (0.0-3.0); HEMATOCRIT 39.9 % (42.0-52.0); LYMPH # 1.6 10^3/uL (1.5-5.0); LYMPH % 23.5 % (24.0-44.0); MEAN CORPUSCULAR HEMOGLOBIN 33.2 pg (27.0-33.0); MEAN CORPUSCULAR HGB CONC 32.6 g/dl (32.0-36.5); MEAN CORPUSCULAR VOLUME 101.8 fl (80.0-96.0); MONO # 0.6 10^3/uL (0.0-0.8); MONO % 8.5 % (2.0-8.0); NEUTROPHILS # 4.3 10^3/uL (1.5-8.5); NEUTROPHILS % 63.1 % (36.0-66.0); PLATELET COUNT, AUTOMATED 212 10^3/uL (150-450); RED BLOOD COUNT 3.92 10^6/uL (4.30-6.10); WHITE BLOOD COUNT 6.7 10^3/uL (4.0-10.0)
[2023-10-03] MEDS: PANTOPRAZOLE 40MG VIAL IV SCH (08:02)
[2023-10-03] MEDS: LR 1,000 ML IV SCH ×2 (08:03→09:12)
[2023-10-03 08:28] LABS: CALCIUM LEVEL 7.8 MG/DL (8.5-10.1); CHOLESTEROL RISK RATIO 4.71 (<5); CREATININE FOR GFR 2.13 MG/DL (0.70-1.30); HDL CHOLESTEROL 29.7 MG/DL (>40); LDL CHOLESTEROL 77.1 MG/DL (<100); MAGNESIUM LEVEL 2.1 MG/DL (1.8-2.4); NON-HDL-C 110.3 MG/DL; POTASSIUM SERUM 4.6 MMOL/L (3.5-5.1)
[2023-10-03 08:30] LABS: THYROID STIMULATING HORMONE 6.374 uIU/ML (0.55-4.78); THYROXINE (T4) 4.9 UG/DL (4.5-10.9)
[2023-10-03 08:33] LABS: FREE THYROXINE INDEX 1.8 % (1.4-3.8); T UPTAKE 36.7 % (22.5-37.0)
[2023-10-03] MEDS ORDERED: POLYETHYLENE GLYCOL (MIRALAX) 238GM BOTTLE PO ONE (09:00)
[2023-10-03 09:14] LABS: HEMOGLOBIN A1c 5.2 % (4.0-6.0)
[2023-10-03 12:09] LABS: HEMATOCRIT 40.5 % (42.0-52.0)
[2023-10-03] MEDS ORDERED: FLEET ENEMA PR ONE (13:30)
[2023-10-03] MEDS ORDERED: BISACODYL 10MG SUPP PR ONE (13:30)
[2023-10-03 14:45] VITALS: BP 120/76; TEMP 98.2; O2SAT 99
[2023-10-03] MEDS: NS 1,000 ML IV SCH ×2 (16:41→23:35)
[2023-10-03 22:00] VITALS: BP 107/69; TEMP 98.2; O2SAT 98
[2023-10-04 00:18] LABS: HEMATOCRIT 38.9 % (42.0-52.0); HEMOGLOBIN 12.5 g/dl (13.5-17.5)
[2023-10-04 05:58] VITALS: BP 106/68; TEMP 98.6; O2SAT 99
[2023-10-04 06:52] LABS: BASO # 0.1 10^3/uL (0.0-0.2); BASO % 0.8 % (0.0-1.0); EOS # 0.3 10^3/uL (0.0-0.5); EOS % 4.6 % (0.0-3.0); HEMATOCRIT 38.4 % (42.0-52.0); HEMOGLOBIN 12.2 g/dl (13.5-17.5); MEAN CORPUSCULAR HEMOGLOBIN 32.8 pg (27.0-33.0); MEAN CORPUSCULAR HGB CONC 31.8 g/dl (32.0-36.5); MEAN CORPUSCULAR VOLUME 103.2 fl (80.0-96.0); MONO # 0.5 10^3/uL (0.0-0.8); MONO % 7.7 % (2.0-8.0); NEUTROPHILS # 3.7 10^3/uL (1.5-8.5); NEUTROPHILS % 56.7 % (36.0-66.0); PLATELET COUNT, AUTOMATED 203 10^3/uL (150-450); RED BLOOD COUNT 3.72 10^6/uL (4.30-6.10); WHITE BLOOD COUNT 6.5 10^3/uL (4.0-10.0)
[2023-10-04 07:21] LABS: CALCIUM LEVEL 8.1 MG/DL (8.5-10.1); CREATININE FOR GFR 2.34 MG/DL (0.70-1.30); GLOMERULAR FILTRATION RATE 33.2 (>60); MAGNESIUM LEVEL 2.2 MG/DL (1.8-2.4); POTASSIUM SERUM 4.6 MMOL/L (3.5-5.1)
[2023-10-04] MEDS ORDERED: INFLUENZA QUADRIVALENT PF VACCINE 0.5ML SYRINGE IM.IMMUN ONE (09:00)
[2023-10-04] MEDS: OMEPRAZOLE 20MG CAP PO SCH (09:02)
[2023-10-04] MEDS ORDERED: ANUSOL HC 25MG SUPP PR PRN (12:00)
[2023-10-04] MEDS ORDERED: SENOKOT S TAB PO PRN (12:00)
[2023-10-04] MEDS ORDERED: MIRALAX *UNIT DOSE* 17GM PACKET PO PRN (12:00)
[2023-10-04] MEDS ORDERED: MIRALAX *UNIT DOSE* 17GM PACKET PO ONE (12:10)
[2023-10-04] MEDS ORDERED: SENOKOT S TAB PO ONE (12:10)
[2023-10-04] MEDS: FERROUS SULFATE 325MG TAB PO SCH ×2 (12:46→21:39)
[2023-10-04] MEDS: PERCOCET 5MG/325MG TAB PO PRN ×2 (12:49→20:25)
[2023-10-04 14:00] VITALS: BP 124/85; TEMP 98.6; O2SAT 100
[2023-10-04] MEDS: NS 1,000 ML IV SCH (14:31)
[2023-10-04] MEDS: ASCORBIC ACID 500 MG TAB PO SCH (17:59)
[2023-10-04 21:24] VITALS: BP 111/68; TEMP 98.2; O2SAT 100
[2023-10-05] MEDS: NS 1,000 ML IV SCH ×3 (00:28→15:35)
[2023-10-05] MEDS: PERCOCET 5MG/325MG TAB PO PRN ×2 (03:58→17:32)
[2023-10-05 06:21] VITALS: BP 111/68; TEMP 97.9; O2SAT 100
[2023-10-05 06:23] LABS: BASO # 0.1 10^3/uL (0.0-0.2); BASO % 0.6 % (0.0-1.0); EOS # 0.3 10^3/uL (0.0-0.5); EOS % 3.8 % (0.0-3.0); HEMATOCRIT 38.8 % (42.0-52.0); HEMOGLOBIN 12.4 g/dl (13.5-17.5); LYMPH % 24.7 % (24.0-44.0); MEAN CORPUSCULAR HEMOGLOBIN 33.1 pg (27.0-33.0); MEAN CORPUSCULAR VOLUME 103.5 fl (80.0-96.0); MONO # 0.6 10^3/uL (0.0-0.8); NEUTROPHILS % 62.6 % (36.0-66.0); PLATELET COUNT, AUTOMATED 195 10^3/uL (150-450); RED BLOOD COUNT 3.75 10^6/uL (4.30-6.10); WHITE BLOOD COUNT 7.9 10^3/uL (4.0-10.0)
[2023-10-05 06:54] LABS: CALCIUM LEVEL 7.7 MG/DL (8.5-10.1); CREATININE FOR GFR 2.53 MG/DL (0.70-1.30); GLOMERULAR FILTRATION RATE 30.3 (>60); MAGNESIUM LEVEL 2.1 MG/DL (1.8-2.4); POTASSIUM SERUM 4.9 MMOL/L (3.5-5.1)
[2023-10-05] MEDS: ASCORBIC ACID 500 MG TAB PO SCH ×2 (08:34→17:32)
[2023-10-05] MEDS: OMEPRAZOLE 20MG CAP PO SCH (08:34)
[2023-10-05] MEDS: FERROUS SULFATE 325MG TAB PO SCH ×2 (08:34→20:33)
[2023-10-05 08:39] VITALS: BP 120/86
[2023-10-05 08:41] VITALS: BP 121/86
[2023-10-05 08:43] VITALS: BP 122/85
[2023-10-05 13:37] VITALS: BP 118/86; TEMP 98.8; O2SAT 100
[2023-10-05 16:08] LABS: Chitobioside Carbohydrat (ACCA 5 units (0-90); Laminaribioside Carbohyd (ALCA 3 units (0-60); Mannobioside Carbohydrat (AMCA 5 units (0-100); Saccharomyces cerevisiae IgG A 17 units (0-50)
[2023-10-05 21:23] VITALS: BP 126/82; TEMP 98.7; O2SAT 100
[2023-10-06] MEDS: NS 1,000 ML IV SCH ×2 (06:22→11:35)
[2023-10-06] MEDS: PERCOCET 5MG/325MG TAB PO PRN (06:22)
[2023-10-06 06:23] LABS: BASO # 0.1 10^3/uL (0.0-0.2); BASO % 0.8 % (0.0-1.0); EOS # 0.3 10^3/uL (0.0-0.5); EOS % 3.5 % (0.0-3.0); HEMATOCRIT 38.6 % (42.0-52.0); HEMOGLOBIN 12.6 g/dl (13.5-17.5); LYMPH # 1.7 10^3/uL (1.5-5.0); MEAN CORPUSCULAR HEMOGLOBIN 33.5 pg (27.0-33.0); MEAN CORPUSCULAR HGB CONC 32.6 g/dl (32.0-36.5); MEAN CORPUSCULAR VOLUME 102.7 fl (80.0-96.0); MONO # 0.6 10^3/uL (0.0-0.8); MONO % 7.4 % (2.0-8.0); NEUTROPHILS # 5.1 10^3/uL (1.5-8.5); PLATELET COUNT, AUTOMATED 204 10^3/uL (150-450); RED BLOOD COUNT 3.76 10^6/uL (4.30-6.10); WHITE BLOOD COUNT 7.7 10^3/uL (4.0-10.0)
[2023-10-06 06:34] VITALS: BP 125/81; TEMP 97.7; O2SAT 100
[2023-10-06 06:48] LABS: CREATININE FOR GFR 2.29 MG/DL (0.70-1.30); POTASSIUM SERUM 4.8 MMOL/L (3.5-5.1)
[2023-10-06] MEDS: OMEPRAZOLE 20MG CAP PO SCH (08:55)
[2023-10-06] MEDS: ASCORBIC ACID 500 MG TAB PO SCH (08:55)
[2023-10-06] MEDS: FERROUS SULFATE 325MG TAB PO SCH (08:55)
[2023-10-06] MEDS ORDERED: MIRA1POW3 PO (10:27)
[2023-10-06] MEDS ORDERED: ASCO50TA PO (10:27)
[2023-10-06] MEDS ORDERED: SODIUM BICARBONATE 325 MG TAB PO ONE (11:25)
[2023-10-06] MEDS ORDERED: SODI650T PO (11:26)
[2023-10-06] MEDS ORDERED: ANUS25SU PR (11:27)
[2023-10-06] MEDS ORDERED: SENO8.6T10 PO (11:27)
== END 2023-10-06 12:10 | disposition home or self-care (01) ==
LOC: M ED 12:29 → UNDOADMOB 16:13 → M ED INP 16:13 → INTOOBSV 16:13 → M ED INP 16:14 → M MS5PR 10-03 14:45
PROVIDERS: ADMIT General Practice; ATTEND General Practice
DX: K62.5 Hemorrhage of anus and rectum (principal); D62 Acute posthemorrhagic anemia; K64.8 Other hemorrhoids; N17.9 Acute kidney failure, unspecified; N18.30 Chronic kidney disease, stage 3 unspecified; N26.9 Renal sclerosis, unspecified; R93.5 Abnormal findings on diagnostic imaging of other abdominal regions, including retroperitoneum; Z85.528 Personal history of other malignant neoplasm of kidney; Z90.79 Acquired absence of other genital organ(s); Z94.84 Stem cells transplant status; E87.20 Acidosis, unspecified; K22.70 Barrett's esophagus without dysplasia; R10.32 Left lower quadrant pain; Z86.010 Personal history of colon polyps; Z92.21 Personal history of antineoplastic chemotherapy; Z92.3 Personal history of irradiation; Z91.81 History of falling; F17.200 Nicotine dependence, unspecified, uncomplicated; Z79.899 Other long term (current) drug therapy; Z84.1 Family history of disorders of kidney and ureter; Z82.49 Family history of ischemic heart disease and other diseases of the circulatory system; Z80.3 Family history of malignant neoplasm of breast; Z20.822 Contact with and (suspected) exposure to COVID-19
CPT/HCPCS: 36415; 74018; 74176; 76870; 78707; 80048; 80061; 80076; 81001; 82270; 83036; 83516; 83690; 83735; 84436; 84443; 84479; 85014; 85018; 85025; 87507; 87631; 93005; 93976; 96361; 96365; 96375; 96376; 99285; A9562; C9113; J2405; J2543

== ENCOUNTER → 2023-10-17 | Outpatient (REF) | payer OTHER ==
[~2023-10-17] MED LIST changes: +ACET-897 PO; +ALEV220T22 PO; +ANUS25SU PR; +ASCO50TA PO; +FERR325T3 PO; +MIRA1POW3 PO; +MULTTAB86 PO; +SENO8.6T10 PO; +SODI650T PO
[2023-10-17 15:19] LABS: BASO # 0.1 10^3/uL (0.0-0.2); BASO % 0.6 % (0.0-1.0); EOS # 0.2 10^3/uL (0.0-0.5); EOS % 2.3 % (0.0-3.0); HEMATOCRIT 44.7 % (42.0-52.0); HEMOGLOBIN 14.7 g/dl (13.5-17.5); LYMPH % 19.1 % (24.0-44.0); MEAN CORPUSCULAR HEMOGLOBIN 33.2 pg (27.0-33.0); MEAN CORPUSCULAR HGB CONC 32.9 g/dl (32.0-36.5); MEAN CORPUSCULAR VOLUME 100.9 fl (80.0-96.0); MONO # 0.8 10^3/uL (0.0-0.8); MONO % 7.2 % (2.0-8.0); NEUTROPHILS # 7.5 10^3/uL (1.5-8.5); NEUTROPHILS % 70.6 % (36.0-66.0); PLATELET COUNT, AUTOMATED 247 10^3/uL (150-450); RED BLOOD COUNT 4.43 10^6/uL (4.30-6.10); WHITE BLOOD COUNT 10.6 10^3/uL (4.0-10.0)
[2023-10-17 15:48] LABS: CALCIUM LEVEL 9.1 MG/DL (8.5-10.1); CREATININE FOR GFR 2.4 MG/DL (0.70-1.30); GLOMERULAR FILTRATION RATE 32.2 (>60); POTASSIUM SERUM 4.4 MMOL/L (3.5-5.1)
== END ==
LOC: M LAB REF 13:39
PROVIDERS: ATTEND Physician Assistant
DX: K64.9 Unspecified hemorrhoids (principal); N18.30 Chronic kidney disease, stage 3 unspecified

== ENCOUNTER → 2023-10-23 | Outpatient (REF) | payer OTHER ==
[2023-10-24 13:11] LABS: PERCENT SATURATION 40.6 % (19.7-50.0)
[2023-10-24 13:12] LABS: FERRITIN 58.9 NG/ML (10.5-307.3)
== END ==
LOC: M LAB REF 11:37
PROVIDERS: ATTEND Internal Medicine Nephrology
DX: D50.9 Iron deficiency anemia, unspecified (principal)

== ENCOUNTER → 2023-12-18 | Outpatient (REF) | payer OTHER ==
[~2023-12-18] MED LIST changes: -MIRA1POW3 PO; +MIRA33506 PO; +VITA500T11 PO
[2023-12-18 12:17] LABS: BASO % 0.6 % (0.0-1.0); EOS # 0.2 10^3/uL (0.0-0.5); EOS % 2.5 % (0.0-3.0); HEMATOCRIT 43.5 % (42.0-52.0); HEMOGLOBIN 14.1 g/dl (13.5-17.5); LYMPH # 2.1 10^3/uL (1.5-5.0); LYMPH % 29.3 % (24.0-44.0); MEAN CORPUSCULAR HEMOGLOBIN 33.7 pg (27.0-33.0); MEAN CORPUSCULAR HGB CONC 32.4 g/dl (32.0-36.5); MEAN CORPUSCULAR VOLUME 103.8 fl (80.0-96.0); MONO # 0.6 10^3/uL (0.0-0.8); MONO % 8.6 % (2.0-8.0); NEUTROPHILS # 4.2 10^3/uL (1.5-8.5); NEUTROPHILS % 58.9 % (36.0-66.0); PLATELET COUNT, AUTOMATED 212 10^3/uL (150-450); RED BLOOD COUNT 4.19 10^6/uL (4.30-6.10); WHITE BLOOD COUNT 7.1 10^3/uL (4.0-10.0)
[2023-12-18 12:23] LABS: ALBUMIN 3.9 G/DL (3.2-5.2); ALKALINE PHOSPHATASE 490 U/L (46-116); ALT/SGPT 50 U/L (7.0-40); AST/SGOT 28 U/L (<34); BILIRUBIN,TOTAL 0.4 MG/DL (0.3-1.2); BLOOD UREA NITROGEN 26 MG/DL (9-23); CARBON DIOXIDE LEVEL 24 MMOL/L (20-31); CHLORIDE LEVEL 109 MMOL/L (98-107); CHOLESTEROL LEVEL 183 MG/DL (<200); CHOLESTEROL RISK RATIO 3.53 (<5); CREATININE FOR GFR 2.72 MG/DL (0.70-1.30); GLOMERULAR FILTRATION RATE 27.9 (>60); GLUCOSE, FASTING 87 MG/DL (60-100); HDL CHOLESTEROL 51.7 MG/DL (>40); IRON (FE) 131 UG/DL (65-175); LDL CHOLESTEROL 108.9 MG/DL (<100); NON-HDL-C 131.3 MG/DL; POTASSIUM SERUM 4.3 MMOL/L (3.5-5.1); SODIUM LEVEL 137 MMOL/L (136-145); THYROID STIMULATING HORMONE 5.347 uIU/ML (0.55-4.78); TOTAL 25(OH) VITAMIN D 26.5 NG/ML (20.0-100.0); TOTAL PROTEIN 6.7 G/DL (5.7-8.2); TRIGLYCERIDES LEVEL 112 MG/DL (<150)
[2023-12-18 12:24] LABS: VITAMIN B12 LEVEL 516 PG/ML (211-911)
[2023-12-18 12:30] LABS: FOLATE > 24.00 NG/ML (>5.4)
[2023-12-18 12:55] LABS: HIV 1&2 SCREEN NEGATIVE (NEGATIVE)
[2023-12-18 13:03] LABS: HEPATITIS C VIRUS ABY INDEX < 0.02 INDEX (<0.8)
[2023-12-18 13:04] LABS: HEMOGLOBIN A1c 4.9 % (4.0-6.0)
== END ==
LOC: M LAB REF 11:44
PROVIDERS: ATTEND Physician Assistant
DX: Z11.9 Encounter for screening for infectious and parasitic diseases, unspecified (principal); E55.9 Vitamin D deficiency, unspecified; N18.32 Chronic kidney disease, stage 3b; D50.9 Iron deficiency anemia, unspecified; Z13.220 Encounter for screening for lipoid disorders; R20.2 Paresthesia of skin

== ENCOUNTER → 2023-12-26 | Outpatient (CLI) | payer OTHER | LOC: M PLAIMG 08:07 | PROVIDERS: ATTEND Student in an Organized Health Care Education/Training Program | DX: C62.90 Malignant neoplasm of unspecified testis, unspecified whether descended or undescended (principal) ==

== ENCOUNTER 2024-01-01 09:04 | Day surgery (SDC) | payer OTHER ==
[~2024-01-01] VITALS: Ht 175.3 cm; Wt 68.5 kg
[2024-01-01] MEDS ORDERED: LIDOCAINE 2% 100MG/5ML SDV (FOR ANES.) As Ordered ONE (09:20)
[2024-01-01] MEDS ORDERED: fentaNYL 100 MCG/2 ML INJECTION As Ordered ONE (09:20)
[2024-01-01] MEDS ORDERED: propofoL 200 MG/20 ML VIAL As Ordered ONE (09:20)
[2024-01-01] MEDS: NS 1,000 ML IV ONE (09:34)
[2024-01-01 10:37] VITALS: TEMP 97.8
[2024-01-01 10:59] VITALS: BP 103/63; O2SAT 99
== END 2024-01-01 11:25 | disposition home or self-care (01) ==
LOC: M OPP 09:04
PROVIDERS: ATTEND Internal Medicine Gastroenterology
DX: Z86.010 Personal history of colon polyps (principal); D12.6 Benign neoplasm of colon, unspecified; K64.8 Other hemorrhoids; K64.4 Residual hemorrhoidal skin tags; K62.89 Other specified diseases of anus and rectum; K22.89 Other specified disease of esophagus; K29.80 Duodenitis without bleeding; K21.00 Gastro-esophageal reflux disease with esophagitis, without bleeding; Z79.1 Long term (current) use of non-steroidal anti-inflammatories (NSAID); Z79.899 Other long term (current) drug therapy; Z87.891 Personal history of nicotine dependence
CPT/HCPCS: 43239; 45385; 88305; J3010

== ENCOUNTER → 2024-01-08 | Outpatient (CLI) | payer OTHER | LOC: M PLAIMG 10:32 | PROVIDERS: ATTEND Student in an Organized Health Care Education/Training Program | DX: M79.604 Pain in right leg (principal) ==

== ENCOUNTER → 2024-04-22 | Outpatient (REF) | payer OTHER ==
[2024-04-22 20:07] LABS: TOTAL 25(OH) VITAMIN D 33.4 NG/ML (20.0-100.0)
[2024-04-22 21:40] LABS: PTH INTACT 86.6 PG/ML (18.5-88.0)
== END ==
LOC: M LAB REF 17:52
PROVIDERS: ATTEND Internal Medicine Nephrology
DX: N25.81 Secondary hyperparathyroidism of renal origin (principal)

== ENCOUNTER → 2024-04-29 | Outpatient (REF) | payer OTHER, SELFPAY | LOC: M LAB REF 17:43 | PROVIDERS: ATTEND Surgery | DX: I78.1 Nevus, non-neoplastic (principal) ==

== ENCOUNTER → 2024-05-28 | Outpatient (REF) | payer OTHER, SELFPAY ==
[2024-05-28 13:35] LABS: BASO # 0.1 10^3/uL (0.0-0.2); BASO % 0.7 % (0.0-1.0); EOS # 0.2 10^3/uL (0.0-0.5); EOS % 2.9 % (0.0-3.0); HEMATOCRIT 44.5 % (42.0-52.0); HEMOGLOBIN 14.5 g/dl (13.5-17.5); LYMPH # 2.4 10^3/uL (1.5-5.0); LYMPH % 33.3 % (24.0-44.0); MEAN CORPUSCULAR HEMOGLOBIN 32.7 pg (27.0-33.0); MEAN CORPUSCULAR HGB CONC 32.6 g/dl (32.0-36.5); MEAN CORPUSCULAR VOLUME 100.5 fl (80.0-96.0); MONO # 0.7 10^3/uL (0.0-0.8); MONO % 9.9 % (2.0-8.0); NEUTROPHILS # 3.8 10^3/uL (1.5-8.5); NEUTROPHILS % 53.1 % (36.0-66.0); PLATELET COUNT, AUTOMATED 208 10^3/uL (150-450); RED BLOOD COUNT 4.43 10^6/uL (4.30-6.10); WHITE BLOOD COUNT 7.2 10^3/uL (4.0-10.0)
[2024-05-28 13:37] LABS: FERRITIN 61.1 NG/ML (10.5-307.3)
[2024-05-28 13:40] LABS: PERCENT SATURATION 37.6 % (19.7-50.0)
== END ==
LOC: M LAB REF 12:39
PROVIDERS: ATTEND Physician Assistant
DX: D64.9 Anemia, unspecified (principal)

== ENCOUNTER → 2024-08-07 | Outpatient (CLI) | payer OTHER | LOC: M PLAIMG 12:24 | PROVIDERS: ATTEND Student in an Organized Health Care Education/Training Program | DX: M65.812 Other synovitis and tenosynovitis, left shoulder (principal) ==

== ENCOUNTER → 2024-10-22 | Outpatient (REF) | payer MEDICAID | LOC: M SFHCADAM 10:08 | PROVIDERS: ATTEND Physician Assistant | DX: L64.9 Androgenic alopecia, unspecified (principal); Z53.9 Procedure and treatment not carried out, unspecified reason ==

== ENCOUNTER → 2024-10-28 | Outpatient (CLI) | payer MEDICAID ==
[2024-10-28 13:49] LABS: APPEARANCE, URINE CLEAR (CLEAR); BACTERIA, URINE AUTO NEGATIVE (NEGATIVE); BILIRUBIN, URINE AUTO NEGATIVE (NEGATIVE); BLOOD, URINE BLOOD NEGATIVE (NEGATIVE); COLOR, URINE STRAW (YELLOW); GLUCOSE, URINE (UA) AUTO NEGATIVE (NEGATIVE); KETONE, URINE AUTO NEGATIVE (NEGATIVE); LEUKOCYTE ESTERASE, URINE AUTO NEGATIVE (NEGATIVE); NITRITE, URINE AUTO NEGATIVE (NEGATIVE); PROTEIN, URINE AUTO NEGATIVE (NEGATIVE); RBC, URINE AUTO 0 /HPF (0-3); SPECIFIC GRAVITY URINE AUTO 1.003 (1.002-1.035); SQUAMOUS EPITHELIAL CELL UR AU 0 /HPF (0-6); UROBILINOGEN, URINE AUTO 0.2 mg/dL (0.0-2.0); WBC, URINE AUTO 0 /HPF (0-3)
[2024-10-28 14:13] LABS: BASO # 0.1 10^3/uL (0.0-0.2); BASO % 0.8 % (0.0-1.0); EOS # 0.2 10^3/uL (0.0-0.5); EOS % 2.2 % (0.0-3.0); HEMATOCRIT 48.6 % (42.0-52.0); HEMOGLOBIN 15.7 g/dl (13.5-17.5); LYMPH # 2.9 10^3/uL (1.5-5.0); LYMPH % 33.6 % (24.0-44.0); MEAN CORPUSCULAR HEMOGLOBIN 32.3 pg (27.0-33.0); MEAN CORPUSCULAR HGB CONC 32.3 g/dl (32.0-36.5); MONO # 0.7 10^3/uL (0.0-0.8); MONO % 8.5 % (2.0-8.0); NEUTROPHILS # 4.6 10^3/uL (1.5-8.5); NEUTROPHILS % 54.5 % (36.0-66.0); PLATELET COUNT, AUTOMATED 241 10^3/uL (150-450); RED BLOOD COUNT 4.86 10^6/uL (4.30-6.10); WHITE BLOOD COUNT 8.5 10^3/uL (4.0-10.0)
[2024-10-28 14:20] LABS: CALCIUM LEVEL 9.6 MG/DL (8.5-10.1); CREATININE FOR GFR 2.98 MG/DL (0.70-1.30); MAGNESIUM LEVEL 2.3 MG/DL (1.8-2.4); PHOSPHORUS LEVEL 4.3 MG/DL (2.5-4.9); POTASSIUM SERUM 4.3 MMOL/L (3.5-5.1)
[2024-10-28 14:28] LABS: PTH INTACT 74.9 PG/ML (18.5-88.0)
[2024-10-28 14:40] LABS: URIC ACID 4.6 MG/DL (3.7-9.2)
== END ==
LOC: M PLALAB 09:18
PROVIDERS: ATTEND Internal Medicine Nephrology
DX: D50.9 Iron deficiency anemia, unspecified (principal)

== ENCOUNTER → 2025-01-14 | Outpatient (REF) | payer MEDICAID, OTHER ==
[2025-01-14 19:01] LABS: ALBUMIN 4.1 G/DL (3.2-5.2); BASO % 0.5 % (0.0-1.0); BILIRUBIN,TOTAL 0.6 MG/DL (0.3-1.2); CHOLESTEROL RISK RATIO 3.7 (<5); CREATININE FOR GFR 2.99 MG/DL (0.70-1.30); EOS # 0.3 10^3/uL (0.0-0.5); EOS % 4.5 % (0.0-3.0); GLOMERULAR FILTRATION RATE 26.2 (>60); HDL CHOLESTEROL 53.7 MG/DL (>40); HEMATOCRIT 48.8 % (42.0-52.0); HEMOGLOBIN 15.9 g/dl (13.5-17.5); LDL CHOLESTEROL 116.1 MG/DL (<100); LYMPH # 1.5 10^3/uL (1.5-5.0); LYMPH % 24.4 % (24.0-44.0); MEAN CORPUSCULAR HEMOGLOBIN 32.6 pg (27.0-33.0); MEAN CORPUSCULAR HGB CONC 32.6 g/dl (32.0-36.5); MEAN CORPUSCULAR VOLUME 100.2 fl (80.0-96.0); MONO # 0.5 10^3/uL (0.0-0.8); MONO % 7.8 % (2.0-8.0); NEUTROPHILS # 3.9 10^3/uL (1.5-8.5); NEUTROPHILS % 62.5 % (36.0-66.0); NON-HDL-C 145.3 MG/DL; PERCENT SATURATION 31.3 % (19.7-50.0); PLATELET COUNT, AUTOMATED 216 10^3/uL (150-450); RED BLOOD COUNT 4.87 10^6/uL (4.30-6.10); TOTAL PROTEIN 7.3 G/DL (5.7-8.2); WHITE BLOOD COUNT 6.2 10^3/uL (4.0-10.0)
[2025-01-14 19:03] LABS: THYROID STIMULATING HORMONE 2.937 uIU/ML (0.55-4.78)
[2025-01-14 19:04] LABS: FERRITIN 34.6 NG/ML (10.5-307.3)
[2025-01-14 19:23] LABS: HEMOGLOBIN A1c 5.2 % (4.0-6.0)
== END ==
LOC: M LAB REF 18:03
PROVIDERS: ATTEND Physician Assistant
DX: F41.9 Anxiety disorder, unspecified (principal); E55.9 Vitamin D deficiency, unspecified; K20.90 Esophagitis, unspecified without bleeding; Z13.220 Encounter for screening for lipoid disorders

== ENCOUNTER → 2025-05-13 | Outpatient (REF) | payer OTHER ==
[2025-05-13 14:32] LABS: BASO # 0.1 10^3/uL (0.0-0.2); BASO % 1.0 % (0.0-1.0); EOS # 0.2 10^3/uL (0.0-0.5); EOS % 2.6 % (0.0-3.0); LYMPH # 2.3 10^3/uL (1.5-5.0); LYMPH % 36.7 % (24.0-44.0); MONO # 0.6 10^3/uL (0.0-0.8); MONO % 9.4 % (2.0-8.0); NEUTROPHILS # 3.1 10^3/uL (1.5-8.5); NEUTROPHILS % 50.1 % (36.0-66.0); PLATELET COUNT, AUTOMATED 226 10^3/uL (150-450)
[2025-05-13 15:00] LABS: CALCIUM LEVEL 9.2 MG/DL (8.5-10.1); CARBON DIOXIDE LEVEL 25.0 MMOL/L (20-31); CHLORIDE LEVEL 105.0 MMOL/L (98-107); CREATININE FOR GFR 2.73 MG/DL (0.70-1.30); GLOMERULAR FILTRATION RATE 29.2 (>60); IRON (FE) 43.0 UG/DL (65-175); PERCENT SATURATION 12.3 % (19.7-50.0); POTASSIUM SERUM 4.3 MMOL/L (3.5-5.1); SODIUM LEVEL 141.0 MMOL/L (136-145)
== END ==
LOC: M LAB REF 12:14
PROVIDERS: ATTEND Physician Assistant
DX: F41.9 Anxiety disorder, unspecified (principal); D50.9 Iron deficiency anemia, unspecified